=== PATIENT | male | born 1960 | race Caucasian/White ===

== ENCOUNTER 2016-10-06 03:26 | Emergency (ER) | payer OTHER ==
[~2016-10-06] VITALS: Ht 185.4 cm; Wt 96.4 kg
[~2016-10-06 03:26] MED LIST changes: -SULF1TAB35 PO; -oxyCODONE/APAP 5/325MG (PERCOCET 5) TABLET PO STA
[2016-10-06] MEDS ORDERED: TETANUS,DIPTH,PERTUSS P/F (BOOSTRIX) 0.5 ML VIAL IM ONE (03:45)
[2016-10-06 03:59] LABS: MEAN PLATELET VOLUME 8.9 FL (7.4-10.4); RED BLOOD COUNT 5.08 10^6/uL (4.35-5.85); RED CELL DISTRIBUTION WIDTH 13.9 % (10.0-14.5); WHITE BLOOD COUNT 4.6 10^3/uL (4.3-11.0)
[2016-10-06 04:23] LABS: ALANINE AMINOTRANSFERASE 41 U/L (0-55); ANION GAP 13 MMOL/L (5-14); ASPARTATE AMINO TRANSFERASE 27 U/L (5-34); BILIRUBIN,DIRECT 0.1 MG/DL (0.0-0.3); BILIRUBIN,INDIRECT 0.3 MG/DL; BILIRUBIN,TOTAL 0.4 MG/DL (0.1-1.0); BLOOD UREA NITROGEN 21 MG/DL (7-18); BUN/CREATININE RATIO 24; CALCIUM 8.7 MG/DL (8.5-10.1); CARBON DIOXIDE 21 MMOL/L (21-32); CHLORIDE 107 MMOL/L (98-107); CREATININE SERUM 0.89 MG/DL (0.60-1.30); GFR ESTIMATED > 60; GLUCOSE 115 MG/DL (70-105); POTASSIUM 3.6 MMOL/L (3.6-5.0); SODIUM 141 MMOL/L (135-145); TOTAL PROTEIN 6.5 G/DL (6.4-8.2)
[2016-10-06 04:26] LABS: ALCOHOL < 10 MG/DL (<10)
[2016-10-06] MEDS ORDERED: LIDOCAINE 1% INJ 20 ML (XYLOCAINE) VIAL INJ ONE (04:30)
[2016-10-06] MEDS ORDERED: ceFAZolin 2 GM/50 ML NS 50 ML IV ONE (04:30)
[2016-10-06] MEDS ORDERED: IOHEXOL 350 MG/ML 100 ML (OMNIPAQUE 350) VIAL IV ONE (04:30)
[2016-10-06] MEDS ORDERED: NS 100 ML (IVPB) BAG IV ONE (04:30)
[2016-10-06] MEDS ORDERED: oxyCODONE/APAP 5/325MG (PERCOCET 5) TABLET PO ONE (05:30)
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
[2016-10-06 05:53] LABS: BILIRUBIN,URINE NEGATIVE (NEGATIVE); KETONES,URINE NEGATIVE (NEGATIVE); LEUKOCYTE ESTERASE ,URINE 1+ (NEGATIVE); NITRITE,URINE NEGATIVE (NEGATIVE); PH,URINE 6.5 (5-9); PROTEIN,URINE 1+ (NEGATIVE); UROBILINOGEN,URINE 1 MG/DL (NORMAL)
[2016-10-06 06:00] LABS: WBC,URINE RARE /HPF
[2016-10-06] MEDS ORDERED: fentaNYL INJECTION 100 MCG/2 ML AMP IVP ONE (06:00)
[2016-10-06 06:01] LABS: SQUAMOUS EPITHELIAL CELL,UR 0-2 /HPF
[2016-10-06 06:44] VITALS: BP 119/79
[2016-10-06] MEDS ORDERED: HYDR-3812 PO (06:46)
[2016-10-06] MEDS ORDERED: SULF1TAB35 PO (06:46)
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
--- NOTE | 2016-10-06 08:40 | Diagnostic Imaging Report ---
INDICATION: Pain. FINDINGS: There is a minimally displaced fracture through the base of the first metacarpal. There also appears to be partial dislocation of the interphalangeal joint of the left thumb. There are otherwise mild degenerative changes. There is no other fracture or dislocation. IMPRESSION: At least partial dislocation of the interphalangeal joint of the thumb. Mildly comminuted fracture involving the base of the first metacarpal Dictated by: Dictated on workstation # [id number]
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
--- NOTE | 2016-10-06 09:38 | Diagnostic Imaging Report ---
INDICATION: Post reduction imaging of the thumb status post dislocation. EXAMINATION: Left thumb dated 10/06/2016. COMPARISON: Same date earlier time. FINDINGS: Three views of the thumb demonstrate an overlying splint obscuring fine bony detail. The previously noted fracture at the base of the proximal first metacarpal is in better anatomic alignment although continued angulation is noted. The remaining osseous structures are unchanged from previous with deformity of the distal aspect of the proximal first phalanx. IMPRESSION: 1. Better alignment although some angulation at the first metacarpal fracture is still seen. Other changes unchanged from previous. Dictated by: Dictated on workstation # [id number]
== END 2016-10-06 06:56 | disposition home or self-care (01) ==
LOC: EDUNIT# 03:26 → ER 03:30
DX: S62.317A Displaced fracture of base of fifth metacarpal bone, left hand, initial encounter for closed fracture (principal); S61.012A Laceration without foreign body of left thumb without damage to nail, initial encounter; S66.922A Laceration of unspecified muscle, fascia and tendon at wrist and hand level, left hand, initial encounter; I25.10 Atherosclerotic heart disease of native coronary artery without angina pectoris; J44.9 Chronic obstructive pulmonary disease, unspecified; Z95.5 Presence of coronary angioplasty implant and graft; Z87.891 Personal history of nicotine dependence; V20.4XXA Motorcycle driver injured in collision with pedestrian or animal in traffic accident, initial encounter
CPT/HCPCS: 12002; 26725; 36415; 70450; 71260; 72125; 73130; 73140; 74177; 80048; 80076; 80320; 81000; 85027; 93041

== ENCOUNTER → 2016-10-06 | Emergency (ER) | payer OTHER ==
[~2016-10-06] VITALS: Ht 185.4 cm; Wt 90.7 kg
[~2016-10-06] MED LIST: ASP325T PO; ASPI-86 PO; ATOR40TA PO; ATOR80TA PO; CITA40TA19 PO; CLOP75TA PO; COZAAR PO; CYCL10TA9 PO; DCS100C PO; DOCU-143 PO; ESCI10TA48; GARL400T13 PO; GLUC-110 PO; HYDR-2858 PO; HYDR-2997 PO; HYDR-3812 PO; HYDR-700 PO; IMDUR; ISOS30TA3 PO; LISI-556 PO; LOPRESSOR; METH-313 PO; METO-333 PO; NAPR-243 PO; NITR0.4T12 SL; OMEP20CA6 PO; OMG1KC PO; PNT40TEC PO; RNT150T PO; SIMV80TA3 PO; SIMVASTATIN; SULF1TAB35 PO; ZEGRID; ZOCOR; oxyCODONE/APAP 5/325MG (PERCOCET 5) TABLET PO STA
--- NOTE | 2016-10-06 14:33 | ED Upper Extremity ---
General Chief Complaint: Upper Extremity Stated Complaint: FALL/WANTS PREVIOUS INJ RECHECKED History of Present Illness Time seen by provider: 13:55 Initial Comments evaluation for left upper extremity injury. he was discharged from the emergency room at 0730 after reduction at the left fifth metacarpal fracture and left thumb fracture. he has a thumb spica splint on the left hand, made from [employer]. He has not filled his prescriptions that were given earlier today. While at home , he tripped over his dog, he does not report that he landed on the left upper extremity but he is concerned that the splint could have moved. also feels as though the left thumb is different than when he left. Pain/Injury Location: left arm, left thumb, left 5th finger Method of Injury: fell Allergies and Home Medications Allergies Coded Allergies: erythromycin base (Unverified Allergy, Intermediate, HIVES, 03/19/16) codeine (Unverified Adverse Reaction, Mild, NAUSEA, IRRITABILITY, 03/19/16 ) Home Medications Hydrocodone/Acetaminophen 1 Each Tablet, 1-2 EACH PO Q6H PRN for PAIN, #40 Prescribed by: REBEKAH HUIZAR on 10/06/16 0646 Sulfamethoxazole/Trimethoprim 1 Each Tablet, 1 EACH PO BID, #20 Prescribed by: REBEKAH HUIZAR on 10/06/16 0646 Constitutional: no symptoms reported, see HPI EENTM: no symptoms reported, see HPI Respiratory: no symptoms reported, see HPI Cardiovascular: no symptoms reported, see HPI Gastrointestinal: no symptoms reported, see HPI Genitourinary: no symptoms reported, see HPI Musculoskeletal: see HPI, joint pain (left thumb) Skin: no symptoms reported, see HPI Psychiatric/Neurological: No Symptoms Reported, See HPI All Other Systems Reviewed Negative Unless Noted: Yes Past Nzrmafk-Uayuaz-Xidsdu Hx Patient Social History Alcohol Use: Denies Use Recreational Drug Use: No Type Used: Cigarettes Former Smoker/When Quit: Apr 29, 2009 Recent Foreign Travel: No Contact w/Someone Who Travel: No Recent Hopitalizations: No Immunizations Up To Date Tetanus Booster (TDap): Less than 5yrs PED Vaccines UTD: No Date of Pneumonia Vaccine: Jul 28, 2012 Seasonal Allergies Seasonal Allergies: Yes Surgeries HX Surgeries: Yes Surgeries: Coronary Stent, Nose Respiratory Hx Respiratory Disorders: Yes Respiratory Disorders: COPD, Emphysema Cardiovascular Hx Cardiac Disorders: Yes Cardiac Disorders: Coronary Artery Disease, Heart Attack, High Cholesterol, Peripheral Vascular Neurological Hx Neurological Disorders: No Reproductive System Hx Reproductive Disorders: No Genitourinary Hx Genitourinary Disorders: No Gastrointestinal Hx Gastrointestinal Disorders: No Musculoskeletal Hx Musculoskeletal Disorders: Yes Musculoskeletal Disorders: Arthritis, Fractures Endocrine Hx Endocrine Disorders: No HEENT HX ENT Disorders: No Cancer Hx Cancer: No Psychosocial Hx Psychiatric Problems: Yes Behavioral Health Disorders: Depression Integumentary HX Skin/Integumentary Disorder: Yes Skin/Integumentary Disorders: Psoriasis Blood Transfusions Hx Blood Disorders: No Adverse Reaction to a Blood Tr: No Reviewed Nursing Assessment Reviewed/Agree w Nursing PMH: Yes Family Medical History Significant Family History: Heart Disease Family Medial History: Colon cancer 19 MOTHER FH: lung cancer 19 FATHER Thyroid disease 19 MOTHER Physical Exam Vital Signs Vital Sign - Last 12Hours 10/06/16 13:45 Temp 98.2 Pulse 77 Resp 18 B/P (MAP) 187/86 Pulse Ox 98 O2 Delivery Room Air Capillary Refill : General Appearance: WD/WN, no apparent distress Cardiovascular: normal peripheral pulses, regular rate, rhythm Respiratory: chest non-tender, lungs clear Hand: Left ([employer] thumb spica splint applied to left upper extremity. The thumb is immobilized. The splint is properly intact. He has full range of motion to the fourth through fifth digits of the left hand. Sensation is intact to the distal tip of the left thumb. Cap Refill less than 2 seconds to left thumb) Neurologic/Psychiatric: no motor/sensory deficits, alert, normal mood/affect, oriented x 3 Skin: normal color, warm/dry Laceration Repair : Suture Size: 4-0 Progress/Results/Core Measures Results/Orders My Orders Orders - MATT DC Oxycodone/Apap 5/325mg Tablet (Percocet (10/06/16 14:00) Hand, Left, 3 Views (10/06/16 14:03) Vital Signs/I&O Vital Sign - Last 12Hours 10/06/16 10/06/16 13:45 14:45 Temp 98.2 Pulse 77 82 Resp 18 18 B/P (MAP) 187/86 Pulse Ox 98 98 O2 Delivery Room Air Diagnostic Imaging Diagonstic Imaging: Xray Plain Films/CT/US/NM/MRI: hand Comments NAME: WING BRONSON JR MED REC#: [id number] PT STATUS: REG ER : 1960 PHYSICIAN: MATT DC ADMIT DATE: 10/06/16/ER Signed Date of Exam: 10/06/16 HAND, LEFT, 3 VIEWS INDICATION: Fracture. 3 views were obtained FINDINGS: The fracture involving the proximal first metacarpal is in near-anatomic alignment. Bones are partially encased within cast material. No other fracture or dislocation. IMPRESSION: Closed reduction and casting of the mildly comminuted fracture involving the base of the first metacarpal. Dictated by: Dictated on workstation # [id number] Dict: 10/06/16 1423 Trans: 10/06/16 1632 Interpreted by: BRIAN HOPKINS Electronically signed by: BRIAN HOPKINS 10/06/16 1632 Reviewed: Reviewed by Me Departure Impression Impression: Primary Impression: Fall Qualified Codes: W19.XXXA - Unspecified fall, initial encounter Additional Impression: Fracture, metacarpal Qualified Codes: S62.245D - Nondisplaced fracture of shaft of first metacarpal bone, left hand, subsequent encounter for fracture with routine healing Disposition: 01 HOME, SELF-CARE Condition: Improved Departure-Patient Inst. Decision time for Depature: 14:15 Referrals: EMILI PABLO MD (PCP/Family) Primary Care Physician Patient Instructions: Preventing Falls Add. Discharge Instructions: Given prescription for pain medicine from earlier today filled. Follow all directions given from earlier today. Return to emergency department for new problems. All discharge instructions reviewed with patient and/or family. Voiced understanding. MATT DC Oct 06, 2016 14:33
[2016-10-06 14:45] VITALS: BP 137/97
== END | disposition home or self-care (01) ==
LOC: EDUNIT# 13:17 → ER 13:19
DX: S62.24 Fracture of shaft of first metacarpal bone (principal); I25.10 Atherosclerotic heart disease of native coronary artery without angina pectoris; J44.9 Chronic obstructive pulmonary disease, unspecified; Z95.5 Presence of coronary angioplasty implant and graft; F17.210 Nicotine dependence, cigarettes, uncomplicated; W01.0XXA Fall on same level from slipping, tripping and stumbling without subsequent striking against object, initial encounter
CPT/HCPCS: 73130; 99282

== ENCOUNTER 2017-10-16 02:39 | Emergency (ER) | payer BC ==
[~2017-10-16] VITALS: Ht 185.4 cm; Wt 90.9 kg
[~2017-10-16 02:39] MED LIST changes: +ACHD5005 PO; -HYDR-3812 PO; +SULF1TAB35 PO
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
[2017-10-16] MEDS ORDERED: RX-NAPROXEN (NAPROSYN) 250 MG TAB PPK#4 PO STA (03:16)
[2017-10-16] MEDS ORDERED: NAPR-915 PO (03:18)
--- NOTE | 2017-10-16 03:22 | ED Upper Extremity ---
General Chief Complaint: Upper Extremity Stated Complaint: RT HAND INJURY-LOG FELL ON HAND Nursing Triage Note: patient reports having a log fall on his R hand Nursing Sepsis Screen: No Definite Risk Source: patient History of Present Illness Date Seen by Provider: Oct 16, 2017 Time Seen by Provider: 02:54 Initial Comments PT ARRIVES VIA POV C/O RIGHT HAND PAIN STATES HE WAS CUTTING WOOD YESTERDAY AND THE END OF A LOG FELL AND HIT THE BACK OF HIS RIGHT HAND C/O PAIN, BRUISING AND SWELLING TO THE AREA NO OTHER INJURIES NO PARESTHESIAS OR MOTOR DEFICITS NO PRIOR INJURY TO THIS HAND HAS NOT TAKEN ANYTHING FOR PAIN PT IS RIGHT HANDED, 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 [employer] PCP: IN [place] Allergies and Home Medications Allergies Coded Allergies: erythromycin base (Unverified Allergy, Intermediate, HIVES, 03/19/16) codeine (Unverified Adverse Reaction, Mild, NAUSEA, IRRITABILITY, 03/19/16 ) Home Medications Hydrocodone Bit/Acetaminophen 1 Each Tablet, 1-2 EACH PO Q6H PRN for PAIN Prescribed by: REBEKAH HUIZAR on 10/06/16 0646 Naproxen 500 Mg Tablet, 500 MG PO BID Prescribed by: BRANDEN RAMÍREZ on 10/16/17 0318 Sulfamethoxazole/Trimethoprim 1 Each Tablet, 1 EACH PO BID Prescribed by: REBEKAH HUIZAR on 10/06/16 0646 Patient Home Medication List Home Medication List Reviewed: Yes Constitutional: no symptoms reported Musculoskeletal: see HPI Skin: see HPI Psychiatric/Neurological: No Symptoms Reported Past Arbhcpv-Jemeiz-Uifpey Hx Patient Social History Alcohol Use: Denies Use Recreational Drug Use: No Smoking Status: Former Smoker Type Used: Cigarettes Former Smoker, Quit: Apr 29, 2007 Recent Foreign Travel: No Contact w/Someone Who Travel: No Recent Infectious Disease Expo: No Recent Hopitalizations: No Physical Abuse: No Sexual Abuse: No Immunizations Up To Date Tetanus Booster (TDap): Less than 5yrs PED Vaccines UTD: No Date of Pneumonia Vaccine: Jul 28, 2012 Seasonal Allergies Seasonal Allergies: Yes Past Medical History Surgeries: Yes (nose re-construction) Coronary Stent, Nose Respiratory: Yes COPD, Emphysema Currently Using CPAP: No Currently Using BIPAP: No Cardiac: Yes Coronary Artery Disease, Heart Attack, High Cholesterol, Peripheral Vascular Neurological: No Reproductive Disorders: No Gastrointestinal: No Musculoskeletal: Yes Arthritis, Fractures Endocrine: No Cancer: No Psychosocial: Yes Depression Nursing Suicide Risk Score: 0 Integumentary: Yes Psoriasis Blood Disorders: No Adverse Reaction/Blood Tranf: No Family Medical History Colon cancer 19 MOTHER FH: lung cancer 19 FATHER Thyroid disease 19 MOTHER Heart Disease Physical Exam Vital Signs Vital Signs - First Documented 10/16/17 03:07 Temp 98.2 Pulse 67 Resp 18 B/P (MAP) 147/85 (105) Pulse Ox 95 Capillary Refill : Less Than 3 Seconds General Appearance: WD/WN, no apparent distress, other (DIRTY, MALODOROUS) Wrist: Yes normal inspection, Yes non-tender, Yes no evidence of injury, Yes normal ROM Hand: Right (DORSAL ASPECT OF RIGHT HAND--NEAR METACARPALS 1, 2, 3), bone tenderness, ecchymosis, soft tissue tenderness, swelling Neurologic/Tendon: normal sensation, normal motor functions, normal tendon functions Neurologic/Psychiatric: insecticide mixer II-XII nml as tested, no motor/sensory deficits, alert, normal mood/affect, oriented x 3 Skin: normal color, warm/dry, ecchymosis Procedures/Interventions Suture Size: 4-0 Splinting and Joint Reduction : Splints: Colles Wrist (ALUMINUM-FOAM) Splint Application: Short Arm Progress/Results/Core Measures Results/Orders My Orders Orders - BRANDEN RAMÍREZ DO Hand, Right, 3 Views (10/16/17 03:00) Cockup Splint (10/16/17 03:16) Rx-Naproxen (Rx-Naprosyn) (10/16/17 03:16) Vital Signs/I&O 10/16/17 10/16/17 03:07 03:25 Temp 98.2 98.2 Pulse 67 67 Resp 18 18 B/P (MAP) 147/85 (105) 147/85 (105) Pulse Ox 95 95 Blood Pressure Mean: 105 Diagnostic Imaging Comments XRAYS RIGHT HAND--NO ACUTE PROCESS, PENDING RADIOLOGIST REVIEW Departure Impression Primary Impression: Contusion of right hand Disposition: 01 HOME, SELF-CARE Condition: Stable Departure-Patient Inst. Referrals: NO,LOCAL PHYSICIAN (PCP/Family) Primary Care Physician Patient Instructions: Contusion (DC), SPLINT CARE Add. Discharge Instructions: WEAR SPLINT NEEDED FOR COMFORT ICE TO AREA AT 20 MINUTE INTERVALS ELEVATE HAND MUCH POSSIBLE FOLLOW UP WITH YOUR DR IN 1 WEEK IF NO BETTER All discharge instructions reviewed with patient and/or family. Voiced understanding. Scripts Naproxen (Naproxen) 500 Mg Tablet 500 MG PO BID, #20 TAB Prov: BRANDEN RAMÍREZ DO 10/16/17 BRANDEN RAMÍREZ DO Oct 16, 2017 03:22
[2017-10-16 03:25] VITALS: BP 147/85
--- NOTE | 2017-10-16 05:31 | Diagnostic Imaging Report ---
INDICATION: Pain and bruising status post injury COMPARISON: None. FINDINGS: 3 views of the right hand show no fractures, dislocations, or other acute bony abnormalities identified. Joint spaces are well maintained throughout. The soft tissues appear unremarkable. No radiopaque foreign bodies are identified. IMPRESSION: No acute fractures or dislocations of the right hand. Dictated by: Dictated on workstation # [id number]
== END 2017-10-16 03:27 | disposition home or self-care (01) ==
LOC: EDUNIT# 02:39 → ER 02:43
DX: S60.221A Contusion of right hand, initial encounter (principal); I25.10 Atherosclerotic heart disease of native coronary artery without angina pectoris; I25.2 Old myocardial infarction; E78.00 Pure hypercholesterolemia, unspecified; F32.9 Major depressive disorder, single episode, unspecified; J43.9 Emphysema, unspecified; Z95.5 Presence of coronary angioplasty implant and graft; Z88.1 Allergy status to other antibiotic agents; Z87.81 Personal history of (healed) traumatic fracture; Z88.5 Allergy status to narcotic agent; Z87.2 Personal history of diseases of the skin and subcutaneous tissue; Z87.891 Personal history of nicotine dependence; W20.8XXA Other cause of strike by thrown, projected or falling object, initial encounter
CPT/HCPCS: 73130

== ENCOUNTER → 2018-07-08 | Outpatient (CLI) | payer BC ==
[~2018-07-08] MED LIST changes: +NAPR-915 PO
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
== END ==
LOC: RAD 14:49
DX: M25.532 Pain in left wrist (principal)
CPT/HCPCS: 73110

== ENCOUNTER 2018-12-30 21:58 | Observation (INO) | payer BC ==
[~2018-12-30] VITALS: Ht 182.9 cm; Wt 83.1 kg
[2018-12-30] MEDS ORDERED: ASPIRIN 81 MG CHEW (CHILDREN'S ASA) PO ONE (22:15)
[2018-12-30 22:22] LABS: BASOPHILS % (AUTO) 1 % (0-10); EOSINOPHILS # (AUTO) 0.4 10^3/uL (0.0-0.3); EOSINOPHILS % (AUTO) 8 % (0-10); HEMATOCRIT 43 % (40-54); HEMOGLOBIN 14.6 G/DL (13.3-17.7); LYMPHOCYTES # (AUTO) 1.4 X 10^3 (1.0-4.0); LYMPHOCYTES % (AUTO) 31 % (12-44); MEAN CORPUSCULAR HEMOGLOBIN 29 PG (25-34); MEAN CORPUSCULAR HGB CONC 34 G/DL (32-36); MEAN CORPUSCULAR VOLUME 83 FL (80-99); MEAN PLATELET VOLUME 9.1 FL (7.4-10.4); MONOCYTES # (AUTO) 0.4 X 10^3 (0.0-1.0); MONOCYTES % (AUTO) 8 % (0-12); NEUTROPHILS # (AUTO) 2.3 X 10^3 (1.8-7.8); NEUTROPHILS % (AUTO) 52 % (42-75); PLATELET COUNT 206 10^3/uL (130-400); RED CELL DISTRIBUTION WIDTH 13.3 % (10.0-14.5); WHITE BLOOD COUNT 4.4 10^3/uL (4.3-11.0)
--- NOTE | 2018-12-30 22:23 | ED Chest Pain ---
General Chief Complaint: Chest Pain Stated Complaint: CHEST PAIN Nursing Triage Note: PT AMB TO RM 5 WITH COMPLAINT OF CP. STATES STARTED APPROX 20 MIN ESTABLISHMENT GUIDE. STATES TOOK TWO NITRO ESTABLISHMENT GUIDE. Nursing Sepsis Screen: No Definite Risk Source: patient, family (daughter) Exam Limitations: no limitations History of Present Illness Date Seen by Provider: Dec 30, 2018 Time Seen by Provider: 22:08 Initial Comments Patient presents to ER by private conveyance with his daughter and chief complaint that approximately for 30 minutes prior to arrival he began to experience some crushing broken glass chest pain in the center of his chest that does not radiate. It is similar to pain is felt before with his cardiac pain. 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 His primary care is up there as well. He has had occluded bilateral femorals that are grafted. He says the pain is worse with walking. He was just sitting talking to family at the time it started. He takes baby aspirin but no blood thinners. He is on simvastatin, mood medicines. He takes Imdur and has been taking his medications appropriately. He quit smoking 10 years ago and is not diabetic. He does have hypertension and hyperlipidemia. No history of CABG. On his way here he took 2 separate nit roglycerin with bring his pain down from a 6 to a 2 or 3. He is presently at 3 out of 10. Allergies and Home Medications Allergies Coded Allergies: erythromycin base (Unverified Allergy, Intermediate, HIVES, 03/19/16) codeine (Unverified Adverse Reaction, Mild, NAUSEA, IRRITABILITY, 03/19/16) Home Medications Hydrocodone Bit/Acetaminophen 1 Each Tablet, 1-2 EACH PO Q6H PRN for PAIN Prescribed by: REBEKAH HUIZAR on 10/06/1646 Naproxen 500 Mg Tablet, 500 MG PO BID Prescribed by: BRANDEN RAMÍREZ on 10/16/17 0318 Sulfamethoxazole/Trimethoprim 1 Each Tablet, 1 EACH PO BID Prescribed by: REBEKAH HUIZAR on 10/06/16645 Patient Home Medication List Home Medication List Reviewed: Yes Review of Systems Review of Systems Constitutional: No chills, No diaphoresis EENTM: No Blurred Vision, No Double Vision Respiratory: Denies Cough, Denies Shortness of Air Cardiovascular: See HPI, Chest Pain; Denies Edema, Denies Irregular Heart Rate, Denies Lightheadedness, Denies Palpitations, Denies Syncope Gastrointestinal: Denies Abdominal Pain, Denies Constipated, Denies Diarrhea, Denies Nausea Genitourinary: Denies Burning, Denies Discharge Musculoskeletal: No back pain, No joint pain Past Wcrdgif-Uhgqzu-Aoujly Hx Patient Social History Alcohol Use: Denies Use Recreational Drug Use: No Smoking Status: Former Smoker Type Used: Cigarettes Former Smoker, Quit: Apr 29, 2007 Recent Foreign Travel: No Contact w/Someone Who Travel: No Recent Infectious Disease Expo: No Recent Hopitalizations: No Physical Abuse: No Sexual Abuse: No Mistreated: No Fear: No Immunizations Up To Date Tetanus Booster (TDap): Less than 5yrs PED Vaccines UTD: No Date of Pneumonia Vaccine: Jul 28, 2012 Seasonal Allergies Seasonal Allergies: Yes Past Medical History Surgeries: Yes (nose re-construction) Coronary Stent, Nose Respiratory: Yes COPD, Emphysema Currently Using CPAP: No Currently Using BIPAP: No Cardiac: Yes Coronary Artery Disease, Heart Attack, High Cholesterol, Peripheral Vascular Neurological: No Reproductive Disorders: No Gastrointestinal: No Musculoskeletal: Yes Arthritis, Fractures Endocrine: No Cancer: No Psychosocial: Yes Depression Integumentary: Yes Psoriasis Blood Disorders: No Adverse Reaction/Blood Tranf: No Family Medical History Colon cancer 19 MOTHER FH: lung cancer 19 FATHER Thyroid disease 19 MOTHER Heart Disease Physical Exam Vital Signs Vital Signs - First Documented 12/30/18 21:58 Temp 97.8 Pulse 81 Resp 15 B/P (MAP) 142/92 (109) Pulse Ox 96 O2 Delivery Room Air Capillary Refill : Less Than 3 Seconds Height, Weight, BMI Height: 6'0" Weight: 185lbs. 8.0oz. 83.008263pi; 21.09 BMI Method:Stated General Appearance: No Apparent Distress, WD/WN HEENT: PERRL/EOMI, Pharynx Normal, Moist Mucous Membranes Respiratory: Chest Non Tender, Lungs Clear, Normal Breath Sounds, No Accessory Muscle Use, No Respiratory Distress Cardiovascular: Regular Rate, Rhythm, No Edema, No Murmur, Normal Peripheral Pulses Gastrointestinal: Normal Bowel Sounds, Non Tender, Soft Extremity: Normal Capillary Refill, Normal Inspection, No Pedal Edema Neurologic/Psychiatric: Alert, Oriented x3 Skin: Normal Color, Warm/Dry Procedures/Interventions Suture Size: 4-0 Progress/Results/Core Measures Results/Orders Lab Results Laboratory Tests Test 12/30/18 22:05 Range/Units White Blood Count 4.4 4.3-11.0 10^3/uL Red Blood Count 5.13 4.35-5.85 10^6/uL Hemoglobin 14.6 13.3-17.7 G/DL Hematocrit 43 40-54 % Mean Corpuscular Volume 83 80-99 FL Mean Corpuscular Hemoglobin 29 25-34 PG Mean Corpuscular Hemoglobin Concent 34 32-36 G/DL Red Cell Distribution Width 13.3 10.0-14.5 % Platelet Count 206 130-400 10^3/uL Mean Platelet Volume 9.1 7.4-10.4 FL Neutrophils (%) (Auto) 52 42-75 % Lymphocytes (%) (Auto) 31 12-44 % Monocytes (%) (Auto) 8 0-12 % Eosinophils (%) (Auto) 8 0-10 % Basophils (%) (Auto) 1 0-10 % Neutrophils # (Auto) 2.3 1.8-7.8 X 10^3 Lymphocytes # (Auto) 1.4 1.0-4.0 X 10^3 Monocytes # (Auto) 0.4 0.0-1.0 X 10^3 Eosinophils # (Auto) 0.4 H 0.0-0.3 10^3/uL Basophils # (Auto) 0.0 0.0-0.1 10^3/uL Prothrombin Time 12.9 12.2-14.7 SEC INR Comment 0.9 0.8-1.4 Activated Partial Thromboplast Time 26 24-35 SEC Sodium Level 140 135-145 MMOL/L Potassium Level 3.6 3.6-5.0 MMOL/L Chloride Level 105 98-107 MMOL/L Carbon Dioxide Level 25 21-32 MMOL/L Anion Gap 10 5-14 MMOL/L Blood Urea Nitrogen 13 7-18 MG/DL Creatinine 1.11 0.60-1.30 MG/DL Estimat Glomerular Filtration Rate > 60 BUN/Creatinine Ratio 12 Glucose Level 130 H 70-105 MG/DL Calcium Level 8.9 8.5-10.1 MG/DL Corrected Calcium 8.7 8.5-10.1 MG/DL Magnesium Level 2.1 1.6-2.4 MG/DL Total Bilirubin 0.4 0.1-1.0 MG/DL Aspartate Amino Transf (AST/SGOT) 20 5-34 U/L Alanine Aminotransferase (ALT/SGPT) 19 0-55 U/L Alkaline Phosphatase 81 40-136 U/L Myoglobin 30.3 10.0-92.0 NG/ML Troponin I < 0.028 <0.028 NG/ML B-Type Natriuretic Peptide < 10.0 <100.0 PG/ML Total Protein 6.7 6.4-8.2 GM/DL Albumin 4.2 3.2-4.5 GM/DL Lipase 42 8-78 U/L My Orders Orders - DEANDRE HOUSE Continuous Ekg Monitoring (12/30/18 22:04) Ekg Tracing (12/30/18 22:04) Chest 1 View, Ap/Pa Only (12/30/18 22:13) Cbc With Automated Diff (12/30/18 22:15) Magnesium (12/30/18 22:15) Cardiac Profile 1 (12/30/18 22:15) Comprehensive Metabolic Panel (12/30/18 22:15) Myoglobin Serum (12/30/18 22:15) Protime With Inr (12/30/18 22:15) Partial Thromboplastin Time (12/30/18 22:15) O2 (12/30/18 22:15) Monitor-Rhythm Ecg Trace Only (12/30/18 22:15) Lipid Panel (12/31/18 06:00) Ed Iv/Invasive Line Start (12/30/18 22:15) Lipase (12/30/18 22:15) BNP (12/30/18 22:15) Aspirin Chewable Tablet (Baby Aspirin Ch (12/30/18 22:15) Medications Given in ED Current Medications Medications Dose Ordered Sig/Deb Route Start Time Stop Time Status Last Admin Dose Admin Aspirin 324 mg ONCE ONCE PO 12/30/18 22:15 12/30/18 22:16 DC 12/30/18 22:19 324 MG Vital Signs/I&O 12/30/18 12/30/18 21:58 21:58 Temp 97.8 Pulse 81 Resp 15 B/P (MAP) 142/92 (109) Pulse Ox 96 O2 Delivery Room Air Room Air Blood Pressure Mean: 109 Progress Progress Note : Time: 22:21 Progress Note Chest pain workup. He does not want anything for the pain right now. Unstable angina versus other? His EKG is normal. If he has a normal troponin he still has a heart score 5 points. [address] Falcon: Patent stents in the right coronary artery. Unchanged coronary artery appearance. Mild left ventricular systolic function. Left ventricular ejection fraction is 25%. Normal cardiac hemodynamics. Echocardiogram [address] Falcon: Normal chamber dimensions and EF of 60%. Mild concentric left ventricular hypertrophy and mild diastolic dysfunction. Initial ECG Impression Date: Dec 30, 2018 Initial ECG Impression Time: 22:05 Initial ECG Rate: 64 Initial ECG Rhythm: Normal Sinus Initial ECG Intervals: Normal Initial ECG Impression: Normal Initial ECG Comparisson: Changed Comment Normal sinus rhythm without clinically significant ST elevation or depression. Diagnostic Imaging Diagonstic Imaging: Xray Plain Films/CT/US/NM/MRI: chest (1v) Reviewed: Reviewed by Me Departure Communication (Admissions) Time/Spoke to Admitting Phy: 23:16 Discussed case lab imaging findings with Dr. Rm and he agrees to observe the patient. Time/Spoke to Consulting Phy: 23:15 Discussed the case with Dr. Galeano; aspirin, Lovenox and nothing by mouth. Impression Primary Impression: Chest pain Qualified Codes: R07.9 - Chest pain, unspecified Additional Impression: ACS (acute coronary syndrome) Disposition: ADMITTED INPATIENT Condition: Stable Admissions Decision to Admit Reason: Admit from ER (General) Decision to Admit/Date: Dec 30, 2018 Time/Decision to Admit Time: 23:15 Departure-Patient Inst. Referrals: NO,LOCAL PHYSICIAN (PCP/Family) Primary Care Physician DEANDRE HOUSE Dec 30, 2018 22:23
[2018-12-30 22:28] LABS: INR 0.9 (0.8-1.4); PROTHROMBIN TIME PATIENT 12.9 SEC (12.2-14.7)
[2018-12-30 22:37] LABS: ALANINE AMINOTRANSFERASE 19 U/L (0-55); ALBUMIN 4.2 GM/DL (3.2-4.5); ALKALINE PHOSPHATASE 81 U/L (40-136); BUN/CREATININE RATIO 12; CALCIUM 8.9 MG/DL (8.5-10.1); CARBON DIOXIDE 25 MMOL/L (21-32); CHLORIDE 105 MMOL/L (98-107); CREATININE SERUM 1.11 MG/DL (0.60-1.30); GFR ESTIMATED > 60; GLUCOSE 130 MG/DL (70-105); LIPASE 42 U/L (8-78); MAGNESIUM 2.1 MG/DL (1.6-2.4); POTASSIUM 3.6 MMOL/L (3.6-5.0); SODIUM 140 MMOL/L (135-145); TOTAL PROTEIN 6.7 GM/DL (6.4-8.2)
[2018-12-30 22:52] LABS: BILIRUBIN,TOTAL 0.4 MG/DL (0.1-1.0)
[2018-12-31] VITALS (11 sets, daily range): BP systolic 103–139; BP diastolic 62–103
[2018-12-31] MEDS ORDERED: ONDANSETRON 4 MG/2 ML (SDV) Z0FRAN IV PRN (01:00)
[2018-12-31] MEDS ORDERED: morphine INJ 4 MG/ML 1 ML (VIAL/SYRINGE) IV PRN (01:15)
[2018-12-31] MEDS ORDERED: CATHETER FLUSH 10 ML SYR IV PRN (01:15)
[2018-12-31] MEDS ORDERED: NITROGLYCERIN 0.4 MG SL TABS BTL 25'S SL PRN (01:15)
[2018-12-31] MEDS ORDERED: NS IV 1000 ML 1,000 ML ONE (01:26)
[2018-12-31] MEDS: NS W/KCL 20 MEQ/L 1,000 ML IV SCH ×2 (02:18→03:15)
[2018-12-31 03:29] LABS: BASOPHILS % (AUTO) 1 % (0-10); EOSINOPHILS # (AUTO) 0.4 10^3/uL (0.0-0.3); EOSINOPHILS % (AUTO) 10 % (0-10); HEMATOCRIT 40 % (40-54); HEMOGLOBIN 13.4 G/DL (13.3-17.7); LYMPHOCYTES # (AUTO) 1.6 X 10^3 (1.0-4.0); LYMPHOCYTES % (AUTO) 36 % (12-44); MEAN CORPUSCULAR HEMOGLOBIN 28 PG (25-34); MEAN CORPUSCULAR HGB CONC 33 G/DL (32-36); MEAN CORPUSCULAR VOLUME 85 FL (80-99); MONOCYTES # (AUTO) 0.4 X 10^3 (0.0-1.0); MONOCYTES % (AUTO) 9 % (0-12); NEUTROPHILS % (AUTO) 44 % (42-75); PLATELET COUNT 190 10^3/uL (130-400); RED CELL DISTRIBUTION WIDTH 13.1 % (10.0-14.5); WHITE BLOOD COUNT 4.4 10^3/uL (4.3-11.0)
[2018-12-31 03:56] LABS: ALANINE AMINOTRANSFERASE 18 U/L (0-55); ALBUMIN 3.8 GM/DL (3.2-4.5); ALKALINE PHOSPHATASE 71 U/L (40-136); BILIRUBIN,TOTAL 0.3 MG/DL (0.1-1.0); BUN/CREATININE RATIO 14; CALCIUM 8.4 MG/DL (8.5-10.1); CARBON DIOXIDE 26 MMOL/L (21-32); CHLORIDE 108 MMOL/L (98-107); CHOLESTEROL 198 MG/DL (< 200); CREATININE SERUM 1.04 MG/DL (0.60-1.30); GFR ESTIMATED > 60; GLUCOSE 87 MG/DL (70-105); HDL CHOLESTEROL 36 MG/DL (40-60); POTASSIUM 3.9 MMOL/L (3.6-5.0); SODIUM 143 MMOL/L (135-145); TOTAL PROTEIN 5.8 GM/DL (6.4-8.2); TRIGLYCERIDES 175 MG/DL (<150); VLDL CHOLESTEROL 35 MG/DL (5-40)
--- NOTE | 2018-12-31 05:50 | Diagnostic Imaging Report ---
EXAMINATION: Portable erect AP chest at 1024 PM INDICATION: Chest pain The heart size is within normal limits and stable when compared to 03/19/2016. The justin are prominent but no different than on the prior exam. There is no evidence for failure, pneumonia or for a pleural effusion. The mediastinum is not widened. The osseous structures are intact. IMPRESSION: There is no evidence for active disease. Dictated by: Dictated on workstation # [id number]
[2018-12-31] MEDS ORDERED: CATHETER FLUSH 10 ML SYR IV SCH (06:00)
[2018-12-31] MEDS ORDERED: REGADENOSON 0.4 MG/5 ML SYR (LEXISCAN) IV ONE ×2 (08:00→08:58)
--- NOTE | 2018-12-31 08:03 | Consultation-Cardiology ---
HPI-Cardiology Cardiology Consultation Date of Consultation 12/31/18 Date of Admission Time Seen by Provider: 08:00 Indication: Chest pain HPI 58 years old gentleman with history of coronary artery disease, hypertension hyperlipidemia, no recent cardiac workup, started to have chest pain in the afternoon today, described it as dull in nature in the retrosternal area persisted until arrival to the emergency room, continue to have waxing and waning pain this morning he is feeling better, had mild residual discomfort, no shortness of breath. No palpitation, no syncope or near syncopal episodes. Had hip pain, have difficulty walking on a treadmill. Home Medications & Allergies Allergies: Coded Allergies: erythromycin base (Unverified Allergy, Intermediate, HIVES, 03/19/16) codeine (Unverified Adverse Reaction, Mild, NAUSEA, IRRITABILITY, 03/19/16) Home Medication List Reviewed: Yes IFD-Rxmbir-Pfcdzj Hx Patient Social History Marital Status: Employed/Student: employed Alcohol Use: Denies Use Recreational Drug Use: No Smoking Status: Former Smoker Former smoker/When Quit: Apr 29, 2009 Type Used: Cigarettes Recent Foreign Travel: No Recent Infectious Disease Expo: No Recent Hopitalizations: No Physical Abuse Screen: No Sexual Abuse: No Immunizations Up To Date Tetanus Booster (TDap): Less than 5yrs Date of Pneumonia Vaccine: Jul 28, 2012 Past Medical History Discussed below Family Medical History Significant Family History: Heart Disease Family History: Colon cancer 19 MOTHER FH: lung cancer 19 FATHER Thyroid disease 19 MOTHER Review of Systems-General Review of Systems Constitutional: see HPI; No chills, No diaphoresis; weakness EENTM: see HPI, no symptoms reported Respiratory: see HPI; No cough, No dyspnea on exertion, No hemoptysis, No orthopnea, No phlegm, No short of breath, No stridor, No wheezing, No other Cardiovascular: see HPI, chest pain; No edema, No Hx of Intervention, No palpitations, No syncope, No vascular heart diseas, No other Gastrointestinal: see HPI Genitourinary: see HPI Musculoskeletal: back pain, joint pain (Hip pain) Skin: see HPI Psychiatric/Neurological: See HPI Reviewed Test Results Reviewed Test Results Lab Laboratory Tests Test 12/30/18 22:05 12/31/18 03:06 Range/Units White Blood Count 4.4 4.4 4.3-11.0 10^3/uL Red Blood Count 5.13 4.74 4.35-5.85 10^6/uL Hemoglobin 14.6 13.4 13.3-17.7 G/DL Hematocrit 43 40 40-54 % Mean Corpuscular Volume 83 85 80-99 FL Mean Corpuscular Hemoglobin 29 28 25-34 PG Mean Corpuscular Hemoglobin Concent 34 33 32-36 G/DL Red Cell Distribution Width 13.3 13.1 10.0-14.5 % Platelet Count 206 190 130-400 10^3/uL Mean Platelet Volume 9.1 9.0 7.4-10.4 FL Neutrophils (%) (Auto) 52 44 42-75 % Lymphocytes (%) (Auto) 31 36 12-44 % Monocytes (%) (Auto) 8 9 0-12 % Eosinophils (%) (Auto) 8 10 0-10 % Basophils (%) (Auto) 1 1 0-10 % Neutrophils # (Auto) 2.3 2.0 1.8-7.8 X 10^3 Lymphocytes # (Auto) 1.4 1.6 1.0-4.0 X 10^3 Monocytes # (Auto) 0.4 0.4 0.0-1.0 X 10^3 Eosinophils # (Auto) 0.4 H 0.4 H 0.0-0.3 10^3/uL Basophils # (Auto) 0.0 0.0 0.0-0.1 10^3/uL Prothrombin Time 12.9 12.2-14.7 SEC INR Comment 0.9 0.8-1.4 Activated Partial Thromboplast Time 26 24-35 SEC Sodium Level 140 143 135-145 MMOL/L Potassium Level 3.6 3.9 3.6-5.0 MMOL/L Chloride Level 105 108 H 98-107 MMOL/L Carbon Dioxide Level 25 26 21-32 MMOL/L Anion Gap 10 9 5-14 MMOL/L Blood Urea Nitrogen 13 15 7-18 MG/DL Creatinine 1.11 1.04 0.60-1.30 MG/DL Estimat Glomerular Filtration Rate > 60 > 60 BUN/Creatinine Ratio 12 14 Glucose Level 130 H 87 70-105 MG/DL Calcium Level 8.9 8.4 L 8.5-10.1 MG/DL Corrected Calcium 8.7 8.6 8.5-10.1 MG/DL Magnesium Level 2.1 1.6-2.4 MG/DL Total Bilirubin 0.4 0.3 0.1-1.0 MG/DL Aspartate Amino Transf (AST/SGOT) 20 18 5-34 U/L Alanine Aminotransferase (ALT/SGPT) 19 18 0-55 U/L Alkaline Phosphatase 81 71 40-136 U/L Myoglobin 30.3 10.0-92.0 NG/ML Troponin I < 0.028 < 0.028 <0.028 NG/ML B-Type Natriuretic Peptide < 10.0 <100.0 PG/ML Total Protein 6.7 5.8 L 6.4-8.2 GM/DL Albumin 4.2 3.8 3.2-4.5 GM/DL Lipase 42 8-78 U/L Triglycerides Level 175 H <150 MG/DL Cholesterol Level 198 < 200 MG/DL LDL Cholesterol Direct 133 H 1-129 MG/DL VLDL Cholesterol 35 5-40 MG/DL HDL Cholesterol 36 L 40-60 MG/DL Physical Exam Physical Exam Vital Signs Vital Signs - First Documented 12/30/18 21:58 Temp 97.8 Pulse 81 Resp 15 B/P (MAP) 142/92 (109) Pulse Ox 96 O2 Delivery Room Air Capillary Refill : Less Than 3 Seconds Height, Weight, BMI Height: 6'0.00" Weight: 183lbs. 2.0oz. 83.918510mv; 24.8 BMI Method:Stated General Appearance: No Apparent Distress, WD/WN Eyes: Bilateral Eye Normal Inspection, Bilateral Eye PERRL, Bilateral Eye EOMI HEENT: PERRL/EOMI, Pharynx Normal, Moist Mucous Membranes Neck: Full Range of Motion, Normal Inspection, Non Tender, Supple, Carotid Bruit Respiratory: Chest Non Tender, Lungs Clear, Normal Breath Sounds, No Accessory Muscle Use, No Respiratory Distress Cardiovascular: Regular Rate, Rhythm, No Edema, No Murmur, Normal Peripheral Pulses Gastrointestinal: Normal Bowel Sounds, Non Tender, Soft Back: Normal Inspection, No CVA Tenderness, No Vertebral Tenderness Extremity: Normal Capillary Refill, Normal Inspection, No Pedal Edema Neurologic/Psychiatric: Alert, Oriented x3 Skin: Normal Color, Warm/Dry Lymphatic: No Adenopathy A/P-Cardiology Admission Diagnosis Chest pain Coronary artery disease Hypertension Hyperlipidemia Assessment/Plan Chest pain resembling angina, currently feeling somewhat better. Cardiac enzymes and EKG did not show any acute abnormality. Patient is unable to walk on the treadmill due to hip and back pain. We will evaluate Lexiscan stress test Coronary artery disease history of stent to the right coronary artery using Promus 3.0 had balloon angioplasty for in-stent restenosis in 2010. No further workup was done. Hypertension, I will restart medication monitor blood pressure Hyperlipidemia, monitor lipids Clinical Quality Measures DVT/VTE Risk/Contraindication: Risk Factor Score Per Nursin RFS Level Per Nursing on Admit: 4+=Very High MASON SHAH MD Dec 31, 2018 08:03
[2018-12-31] MEDS ORDERED: ASPIRIN E.C. 81 MG (ECOTRIN) TAB PO SCH (09:00)
--- NOTE | 2018-12-31 10:43 | History & Physical-Hospitalist ---
History of Present Illness HPI/Chief Complaint Liborio Sheppard Jr is a 58-year-old male with past medical history of hypertension, hyperlipidemia, coronary artery disease, who presented with chest pain. He reports that he was feeling well until yesterday evening. He was having an argument with his son-in-law and developed "crushing" substernal chest pain. She reports that there was radiation of the pain into his neck. He denies any nausea, vomiting, dyspnea, or diaphoresis. He denies any recent illness. He denies any fevers or chills. He denies any abdominal pain. Source: patient Exam Limitations: no limitations Date Seen 12/31/18 Time Seen by a Provider: 08:00 Attending Physician Juan Rm MD PCP No,Local Physician Referring Physician Date of Admission Dec 30, 2018 at 23:20 Home Medications & Allergies Home Medications Reviewed patient Home Medication Reconciliation performed by pharmacy medication reconciliations electroencephalograph technician and/or nursing. Patients Allergies have been reviewed. Allergies Allergies Coded Allergies erythromycin base (Unverified Allergy, Intermediate, HIVES, 03/19/16) codeine (Unverified Adverse Reaction, Mild, NAUSEA, IRRITABILITY, 03/19/16) Past Xodfrli-Fvzdgw-Juuqyb Hx Past Med/Social Hx: Reviewed Nursing Past Med/Soc Hx Patient Social History Marrital Status: Employed/Student: employed Alcohol Use: Denies Use Number of Drinks Today: 0 Recreational Drug Use: No Smoking Status: Former Smoker Former Smoker, Quit: Apr 29, 2007 Type Used: Cigarettes Physical Abuse Screen: No Sexual Abuse: No Recent Foreign Travel: No Contact w/other who traveled: No Recent Hopitalizations: No Recent Infectious Disease Expo: No Immunizations Up To Date Tetanus Booster (TDap): Less than 5yrs Pediatric: No Date of Pneumonia Vaccine: Jul 28, 2012 Seasonal Allergies Seasonal Allergies: No Past Medical History Surgeries: Coronary Stent, Nose Currently Using CPAP: No Currently Using BIPAP: No Cardiac: Coronary Artery Disease, Heart Attack, High Cholesterol, Peripheral Vascular Reproductive: No Musculoskeletal: Arthritis, Fractures Psychosocial: Depression Skin/Integumentary: Psoriasis History of Blood Disorders: No Adverse Reaction to Blood Lopez: No Family History Colon cancer 19 MOTHER FH: lung cancer 19 FATHER Thyroid disease 19 MOTHER Heart Disease Review of Systems Constitutional: no symptoms reported EENTM: no symptoms reported Respiratory: no symptoms reported Cardiovascular: chest pain Gastrointestinal: no symptoms reported Genitourinary: no symptoms reported Musculoskeletal: no symptoms reported Skin: no symptoms reported Psychiatric/Neurological: No Symptoms Reported Physical Exam Physical Exam Vital Signs Vital Signs - First Documented 12/30/18 21:58 Temp 97.8 Pulse 81 Resp 15 B/P (MAP) 142/92 (109) Pulse Ox 96 O2 Delivery Room Air Capillary Refill : Less Than 3 Seconds Height, Weight, BMI Height: 6'0.00" Weight: 183lbs. 2.0oz. 83.916120yr; 24.8 BMI Method:Stated General Appearance: No Apparent Distress, WD/WN HEENT: PERRL/EOMI Neck: Normal Inspection, Non Tender, Supple Respiratory: Chest Non Tender, Lungs Clear, Normal Breath Sounds, No Respiratory Distress Cardiovascular: Regular Rate, Rhythm, No Edema, No Murmur Gastrointestinal: Normal Bowel Sounds, Non Tender, Soft Extremity: Normal Inspection, Non Tender, No Pedal Edema Neurologic/Psychiatric: Alert, Oriented x3, No Motor/Sensory Deficits Skin: Normal Color, Warm/Dry Lymphatic: No Adenopathy Results Results/Procedures Labs Laboratory Tests 12/30/18 22:05 12/31/18 03:06 Patient resulted labs reviewed. Imaging: Reviewed Imaging Report Assessment/Plan Admission Diagnosis Chest pain Admission Status: Inpatient Order (span 2 midnights) Reason for Inpatient Admission: Coronary artery disease Hypertension Hyperlipidemia Assessment and Plan Chest pain Coronary artery disease Hypertension Hyperlipidemia Chest pain concerning for angina Troponins remain negative EKG normal sinus rhythm, no concerning ST or T-wave changes Lipid panel with low HDL, high LDL and triglycerides Given aspirin 324 mg in the ER, continue baby aspirin daily Transition to high intensity statin, Lipitor 80 mg daily Cardiology consulted, planning for stress test today Will plan to restart antihypertensives prior to discharge Clinical Quality Measures DVT/VTE Risk/Contraindication: Risk Factor Score Per Nursin RFS Level Per Nursing on Admit: 4+=Very High NATALIE CAREY MD Dec 31, 2018 10:43
[2018-12-31] MEDS ORDERED: TIOT18CA2 IH (11:38)
[2018-12-31] MEDS ORDERED: ASPI-983 PO (11:38)
[2018-12-31] MEDS ORDERED: MELO15TA14 PO (11:38)
[2018-12-31] MEDS ORDERED: ASPI-789 PO (11:38)
[2018-12-31] MEDS ORDERED: RT-ALBUINH IH (11:38)
[2018-12-31] MEDS ORDERED: NITR0.4T39 SL (11:38)
[2018-12-31] MEDS ORDERED: PANT40TA2 PO (11:38)
[2018-12-31] MEDS ORDERED: TIZA4TAB4 PO (11:47)
[2018-12-31] MEDS ORDERED: ISOS30TA3 PO ×2 (11:47→12:32)
[2018-12-31] MEDS ORDERED: SIMV20TA3 PO (11:47)
[2018-12-31] MEDS ORDERED: ESCI20TA PO (11:47)
[2018-12-31] MEDS ORDERED: BUPR300T43 PO (11:47)
--- NOTE | 2018-12-31 11:47 | NUR ---
SPOKE WITH THE PATIENT ABOUT HIS MEDICATIONS. HE LISTED THE NAMES TO ME AND I CALLED THE OUTPATIENT PHARMACY AT [facility] FOR A LIST OF RECENTLY FILLED MEDICATIONS. HE IS PAST DUE FOR REFILL ON A FEW, HE STATES HE THINKS HE HAS THEM AT HOME BUT WITHOUT HIS BOTTLES HE CAN NOT BE SURE. HE IS GOING TO TAKE THE LIST WE PUT IN THE COMPUTER HOME AND GO THROUGH ALL HIS MED BOTTLES. I NOTED THE PAST DUE FILL DATE ON THE MED REC. [facility] FILLED: 11-25-18 MOBIC 15MG DAILY #11-24-18 LEXAPRO 20MG DAILY #11-24-18 SPIRIVA DAILY #11-24-18 PROTONIX 40MG DAILY #11-24-18 ALBUTEROL INHALER 2 PUFFS QID PRN #3 11-24-18 NITROSTAT 0.4MG PRN 07-22-18 WELLBUTRIN XL 300MG DAILY #07-22-18 ISOSORBIDE 30MG DAILY # SIMVASTATIN 20MG TIZANIDINE 4MG #30 (TAKES HS PRN) SYMBICORT 160-4.5 (STATES HE ONLY HAS SPIRIVA AND ONE PRN INHALER, DID NOT PUT THIS ON MED REC) HE TAKES ASPIRIN 81MG DAILY OTC AND EXCEDRIN NEEDED.
[2018-12-31] MEDS ORDERED: ATOR80TA76 PO (12:32)
--- NOTE | 2018-12-31 12:34 | Discharge Inst-Simple/Standard ---
Discharge Inst-Standard Discharge Medications New, Converted or Re-Newed RX: Transmitted to Pharmacy Patient Instructions/Follow Up Plan of Care/Instructions/FU: Take medications as prescribed. Follow up with Cardiology. Activity as Tolerated: Yes Discharge Diet: No Restrictions Return to The Hospital For: chest pain, shortness of breath, or if you feel like you are getting worse NATALIE CAREY MD Dec 31, 2018 12:34
--- NOTE | 2018-12-31 12:41 | Discharge Summary ---
Diagnosis/Chief Complaint Date of Admission Dec 30, 2018 at 23:20 Date of Discharge Discharge Date: Dec 31, 2018 Discharge Time: 12:37 Admission Diagnosis Chest pain Primary Care No,Local Physician Discharge Diagnosis Stable Angina Discharge Summary Discharge Physical Exam Allergies: Coded Allergies: erythromycin base (Unverified Allergy, Intermediate, HIVES, 03/19/16) codeine (Unverified Adverse Reaction, Mild, NAUSEA, IRRITABILITY, 03/19/16) Vitals & I&Os Vital Signs Date Time Temp Pulse Resp B/P (MAP) Pulse Ox O2 Delivery O2 Flow Rate FiO2 12/31/18 12:32 98.1 12/31/18 11:43 Room Air 12/31/18 08:00 56 10 117/80 (92) 98 General Appearance: No Apparent Distress Hospital Course Liborio Sheppard is a 58-year-old male with past medical history of hypertension, hyperlipidemia, coronary artery disease, who presented with chest pain. Ca rdiology was consulted and he underwent a Lexiscan which was normal. He also had a normal echocardiogram. His troponins remained normal and his initial EKG was also without abnormalities. He had not been taking any medications recently and was restarted on aspirin, statin, and Imdur. He will follow up with cardiology as an outpatient. Labs (last 24 hrs) Laboratory Tests 12/30/18 22:05: White Blood Count 4.4, Red Blood Count 5.13, Hemoglobin 14.6, Hematocrit 43, Mean Corpuscular Volume 83, Mean Corpuscular Hemoglobin 29, Mean Corpuscular Hemoglobin Concent 34, Red Cell Distribution Width 13.3, Platelet Count 206, Mean Platelet Volume 9.1, Neutrophils (%) (Auto) 52, Lymphocytes (%) (Auto) 31, Monocytes (%) (Auto) 8, Eosinophils (%) (Auto) 8, Basophils (%) (Auto) 1, Neutrophils # (Auto) 2.3, Lymphocytes # (Auto) 1.4, Monocytes # (Auto) 0.4, Eosinophils # (Auto) 0.4H, Basophils # (Auto) 0.0, Prothrombin Time 12.9, INR Comment 0.9, Activated Partial Thromboplast Time 26, Sodium Level 140, Potassium Level 3.6, Chloride Level 105, Carbon Dioxide Level 25, Anion Gap 10, Blood Urea Nitrogen 13, Creatinine 1.11, Estimat Glomerular Filtration Rate > 60, BUN/Creatinine Ratio 12, Glucose Level 130H, Calcium Level 8.9, Corrected Calcium 8.7, Magnesium Level 2.1, Total Bilirubin 0.4, Aspartate Amino Transf (AST/SGOT) 20, Alanine Aminotransferase (ALT/SGPT) 19, Alkaline Phosphatase 81, Myoglobin 30.3, Troponin I < 0.028, B-Type Natriuretic Peptide < 10.0, Total Protein 6.7, Albumin 4.2, Lipase 42 12/31/18 03:06: White Blood Count 4.4, Red Blood Count 4.74, Hemoglobin 13.4, Hematocrit 40, Mean Corpuscular Volume 85, Mean Corpuscular Hemoglobin 28, Mean Corpuscular Hemoglobin Concent 33, Red Cell Distribution Width 13.1, Platelet Count 190, Mean Platelet Volume 9.0, Neutrophils (%) (Auto) 44, Lymphocytes (%) (Auto) 36, Monocytes (%) (Auto) 9, Eosinophils (%) (Auto) 10, Basophils (%) (Auto) 1, Neutrophils # (Auto) 2.0, Lymphocytes # (Auto) 1.6, Monocytes # (Auto) 0.4, Eosinophils # (Auto) 0.4H, Basophils # (Auto) 0.0, Sodium Level 143, Potassium Level 3.9, Chloride Level 108H, Carbon Dioxide Level 26, Anion Gap 9, Blood Urea Nitrogen 15, Creatinine 1.04, Estimat Glomerular Filtration Rate > 60, BUN/Creatinine Ratio 14, Glucose Level 87, Calcium Level 8.4L, Corrected Calcium 8.6, Total Bilirubin 0.3, Aspartate Amino Transf (AST/SGOT) 18, Alanine Aminotransferase (ALT/SGPT) 18, Alkaline Phosphatase 71, Troponin I < 0.028, Total Protein 5.8L, Albumin 3.8, Triglycerides Level 175H, Cholesterol Level 198, LDL Cholesterol Direct 133H, VLDL Cholesterol 35, HDL Cholesterol 36L Patient resulted labs reviewed. Imaging: Reviewed Imaging Report Discussion & Recommendations Discharge Planning: <30 minutes discharge planning Discharge Home Medications: Active Scripts Active Atorvastatin Calcium 80 Mg Tablet 80 Mg PO HS 90 Days Isosorbide Mononitrate ER (Isosorbide Mononitrate) 30 Mg Tab.er.24h 30 Mg PO DAILY 90 Days LAST FILLED #90 07-22-18 Reported Tizanidine HCl 4 Mg Tablet 4 Mg PO HS PRN LAST FILLED SEPTEMBER 2017 #30 Simvastatin 20 Mg Tablet 20 Mg PO HS LAST FILLED OCTOBER 2017 Wellbutrin Xl (Bupropion HCl) 300 Mg Tab.er.24h 300 Mg PO DAILY LAST FILLED #90 07-22-18 Lexapro (Escitalopram Oxalate) 20 Mg Tablet 20 Mg PO DAILY Nitroglycerin 0.4 Mg Tab.subl 0.4 Mg SL UD PRN Proair Hfa (Albuterol Sulfate) 1 Puff Puff 2 Puff IH QID PRN Protonix (Pantoprazole Sodium) 40 Mg Tablet.dr 40 Mg PO DAILY Spiriva (Tiotropium [place]) 1 Inh Aerp 1 Cap IH DAILY Mobic (Meloxicam) 15 Mg Tablet 15 Mg PO DAILY Excedrin Migraine Caplet (Aspirin/Acetaminophen/Caffeine) 1 Each Tablet 2 Tab PO Q6-8HR PRN Aspirin EC (Aspirin) 81 Mg Tablet.dr 81 Mg PO DAILY Condition at discharge Stable Instructions to patient/family Please see electronic discharge instructions given to patient. Clinical Quality Measures DVT/VTE Risk/Contraindication: Risk Factor Score Per Nursin RFS Level Per Nursing on Admit: 4+=Very High NATALIE CAREY MD Dec 31, 2018 12:41
--- NOTE | 2018-12-31 13:08 | NUR ---
WING BRONSON JR demonstrates understanding of discharge instructions and accurately returns instructions upon questioning. Copy of Post-Discharge Instructions and Medication Discharge Instructions given to PT. WING BRONSON JR is able to manage continuing needs after discharge. Patients belongings returned to PT. Skin dry and intact; no breakdown noted. Patient discharged from [facility] on 12/31/18 at 1308. WING BRONSON JR left floor via AMBULATION, accompanied by STAFF/FAMILY.
--- NOTE | 2018-12-31 16:06 | STRESS TEST ---
DATE OF SERVICE: 12/31/2018 LEXISCAN MYOVIEW STRESS TEST REPORT REFERRING PHYSICIAN: No local physician. Baseline heart rate is 51. Baseline blood pressure 139/77. Baseline EKG is sinus rhythm with no ischemic changes. In summary, the patient was injected with 10.79 mCi of technetium-99 Myoview and the resting images were obtained. Then, the patient received 0.4 mg of Lexiscan followed by a 31.4 mCi of technetium-99 Myoview. Throughout the test, there were no EKG changes. The resting and stress images were reviewed and compared in the short axis, horizontal long axis, and vertical long axis views. Review of the images showed diaphragmatic attenuation affecting the quality of the images. There is mild decreased uptake at the inferoapical segment with subtle reversibility, no significant ischemia or infarction. SSS is 0. TID value 1.11. On the gated images, the left ventricle appeared to be normal size with mild hypokinesia of the inferior wall. Calculated ejection fraction 46%. IN CONCLUSION: 1. The patient tolerated Lexiscan well. 2. Diaphragmatic attenuation with mild decreased uptake at the inferoapical segment with subtle reversibility, no significant ischemia was noted. 3. Normal left ventricular size with mild hypokinesia at the inferior wall. Calculated ejection fraction 46%. Job ID: [id number] DocumentID: [id number] Dictated Date: 12/31/2018 15:57:17 [address] Recording Monitor Date: 12/31/2018 16:06:13 Dictated By: MASON SHAH MD
[2018-12-31] MEDS ORDERED: ATORVASTATIN 80 MG (LIPITOR) TABLET PO SCH (21:00)
== END 2018-12-31 13:08 | disposition home or self-care (01) ==
LOC: EDUNIT# 22:02 → ER 22:03 → ICU 23:20
PROVIDERS: ADMIT Internal Medicine; ATTEND Internal Medicine
DX: R07.9 Chest pain, unspecified (principal); E78.5 Hyperlipidemia, unspecified; J44.9 Chronic obstructive pulmonary disease, unspecified; I10 Essential (primary) hypertension; I25.10 Atherosclerotic heart disease of native coronary artery without angina pectoris; I73.9 Peripheral vascular disease, unspecified; I24.9 Acute ischemic heart disease, unspecified; F32.9 Major depressive disorder, single episode, unspecified; L40.9 Psoriasis, unspecified; M19.90 Unspecified osteoarthritis, unspecified site; Z87.891 Personal history of nicotine dependence; Z79.899 Other long term (current) drug therapy; Z88.1 Allergy status to other antibiotic agents; Z88.8 Allergy status to other drugs, medicaments and biological substances; Z79.891 Long term (current) use of opiate analgesic; Z79.82 Long term (current) use of aspirin; Z95.1 Presence of aortocoronary bypass graft; Z82.49 Family history of ischemic heart disease and other diseases of the circulatory system; Z80.0 Family history of malignant neoplasm of digestive organs; Z80.1 Family history of malignant neoplasm of trachea, bronchus and lung; Z83.49 Family history of other endocrine, nutritional and metabolic diseases
CPT/HCPCS: 36415; 71045; 78452; 80053; 80061; 83690; 83735; 83874; 83880; 84484; 85025; 85610; 85730; 93005; 93017; 93041; 93306

== ENCOUNTER 2019-05-21 12:47 | Observation (INO) | payer BC ==
[2019-05-21] VITALS (13 sets, daily range): BP systolic 114–139; BP diastolic 63–89
[~2019-05-21] VITALS: Ht 182.9 cm; Wt 97.7 kg
[~2019-05-21 12:47] MED LIST changes: +ASPI-789 PO; +ASPI-983 PO; +ATOR80TA76 PO; +BUPR300T43 PO; +ESCI20TA PO; +MELO15TA14 PO; +NITR0.4T39 SL; +PANT40TA2 PO; +RT-ALBUINH IH; +SIMV20TA26 PO; +TIOT18CA2 IH; +TIZA4TAB4 PO
[2019-05-21] MEDS ORDERED: ASPIRIN 81 MG CHEW (CHILDREN'S ASA) PO ONE (13:00)
--- NOTE | 2019-05-21 13:01 | ED Chest Pain ---
General Stated Complaint: CHEST PAIN Source: patient Exam Limitations: no limitations History of Present Illness Date Seen by Provider: May 21, 2019 Time Seen by Provider: 12:56 Initial Comments To ER with chest pain that awakened him from sleep at about 1150 this morning. History of coronary stents, his most recent cardiology catheterization was with Dr. Falcon here 2012. He took 2 nitroglycerin this morning (which are prescribed by his primary care provider in [place]). The 2 nitroglycerin completely resolved his pain and he is now pain-free. Chest pain was described as heaviness. Was admitted here in December for chest pain had stress test. Saw Dr. Galeano but has not followed up with him. 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 NTG SL FIELD MARKETING TEAM LEADER: Yes Allergies and Home Medications Allergies Coded Allergies: erythromycin base (Unverified Allergy, Intermediate, HIVES, 03/19/16) codeine (Unverified Adverse Reaction, Mild, NAUSEA, IRRITABILITY, 03/19/16) Home Medications Albuterol Sulfate 1 Puff Puff, 2 PUFF IH QID PRN for SHORTNESS OF BREATH, (Reported) Aspirin 81 Mg Tablet.dr, 81 MG PO DAILY, (Reported) Aspirin/Acetaminophen/Caffeine 1 Each Tablet, 2 TAB PO Q6-8HR PRN for Headache, (Reported) Atorvastatin Calcium 80 Mg Tablet, 80 MG PO HS Prescribed by: NATALIE CAREY on 12/31/18 1232 Escitalopram Oxalate 20 Mg Tablet, 20 MG PO DAILY, (Reported) Isosorbide Mononitrate 30 Mg Tab.er.24h, 30 MG PO DAILY LAST FILLED #90 07-22-18 Prescribed by: NATALIE CAREY on 12/31/18 1232 Nitroglycerin 0.4 Mg Tab.subl, 0.4 MG SL UD PRN for CHEST PAIN, (Reported) Pantoprazole Sodium 40 Mg Tablet.dr, 40 MG PO DAILY, (Reported) Tiotropium [place] 1 Inh Aerp, 1 CAP IH DAILY, (Reported) Patient Home Medication List Home Medication List Reviewed: Yes Review of Systems Review of Systems Constitutional: see HPI EENTM: No Symptoms Reported Respiratory: No Symptoms Reported Cardiovascular: See HPI, Chest Pain Gastrointestinal: No Symptoms Reported Genitourinary: No Symptoms Reported Musculoskeletal: no symptoms reported Skin: no symptoms reported Psychiatric/Neurological: No Symptoms Reported Endocrine: No Symptoms Reported Hematologic/Lymphatic: No Symptoms Reported Past [id number]-Usmhfq-Mpbfrl Hx Patient Social History Type Used: Cigarettes Former Smoker, Quit: Apr 29, 2007 Recent Foreign Travel: No Contact w/Someone Who Travel: No Recent Hopitalizations: No Immunizations Up To Date Tetanus Booster (TDap): Less than 5yrs PED Vaccines UTD: No Date of Pneumonia Vaccine: Jul 28, 2012 Seasonal Allergies Seasonal Allergies: No Past Medical History Surgeries: No Coronary Stent, Nose Respiratory: No COPD, Emphysema Currently Using CPAP: No Currently Using BIPAP: No Cardiac: Yes Coronary Artery Disease, Heart Attack, High Cholesterol, Peripheral Vascular Neurological: No Reproductive Disorders: No Genitourinary: No Gastrointestinal: No Musculoskeletal: No Arthritis, Fractures Endocrine: No HEENT: No Cancer: No Psychosocial: Yes Depression Integumentary: Yes (psoriasis) Psoriasis Blood Disorders: No Adverse Reaction/Blood Tranf: No Family Medical History Colon cancer 19 MOTHER FH: lung cancer 19 FATHER Thyroid disease 19 MOTHER Heart Disease Physical Exam Vital Signs Vital Signs - First Documented 05/21/19 12:50 Temp 36.6 Pulse 70 Resp 20 B/P (MAP) 138/95 (109) Pulse Ox 96 O2 Delivery Room Air Capillary Refill : Height, Weight, BMI Height: 6'0.00" Weight: 183lbs. 2.0oz. 83.948380ph; 24.8 BMI Method:Stated General Appearance: No Apparent Distress, WD/WN HEENT: PERRL/EOMI, TMs Normal Neck: Full Range of Motion, Normal Inspection Respiratory: No Accessory Muscle Use, No Respiratory Distress Cardiovascular: Regular Rate, Rhythm, Normal Peripheral Pulses Gastrointestinal: Normal Bowel Sounds, Non Tender, Soft Extremity: Normal Capillary Refill, Normal Inspection Neurologic/Psychiatric: Alert, Oriented x3 Skin: Normal Color, Warm/Dry Procedures/Interventions Suture Size: 4-0 Progress/Results/Core Measures Results/Orders Lab Results Laboratory Tests Test 05/21/19 12:55 Range/Units White Blood Count 6.9 4.3-11.0 10^3/uL Red Blood Count 5.29 4.35-5.85 10^6/uL Hemoglobin 14.8 13.3-17.7 G/DL Hematocrit 45 40-54 % Mean Corpuscular Volume 85 80-99 FL Mean Corpuscular Hemoglobin 28 25-34 PG Mean Corpuscular Hemoglobin Concent 33 32-36 G/DL Red Cell Distribution Width 13.9 10.0-14.5 % Platelet Count 225 130-400 10^3/uL Mean Platelet Volume 9.0 7.4-10.4 FL Neutrophils (%) (Auto) 68 42-75 % Lymphocytes (%) (Auto) 19 12-44 % Monocytes (%) (Auto) 8 0-12 % Eosinophils (%) (Auto) 5 0-10 % Basophils (%) (Auto) 0 0-10 % Neutrophils # (Auto) 4.7 1.8-7.8 X 10^3 Lymphocytes # (Auto) 1.3 1.0-4.0 X 10^3 Monocytes # (Auto) 0.6 0.0-1.0 X 10^3 Eosinophils # (Auto) 0.3 0.0-0.3 10^3/uL Basophils # (Auto) 0.0 0.0-0.1 10^3/uL Prothrombin Time 12.0 L 12.2-14.7 SEC INR Comment 0.9 0.8-1.4 Activated Partial Thromboplast Time 25 24-35 SEC Sodium Level 140 135-145 MMOL/L Potassium Level 4.2 3.6-5.0 MMOL/L Chloride Level 104 98-107 MMOL/L Carbon Dioxide Level 26 21-32 MMOL/L Anion Gap 10 5-14 MMOL/L Blood Urea Nitrogen 18 7-18 MG/DL Creatinine 0.94 0.60-1.30 MG/DL Estimat Glomerular Filtration Rate > 60 BUN/Creatinine Ratio 19 Glucose Level 105 70-105 MG/DL Calcium Level 9.0 8.5-10.1 MG/DL Corrected Calcium 8.8 8.5-10.1 MG/DL Magnesium Level 1.8 1.6-2.4 MG/DL Total Bilirubin 0.3 0.1-1.0 MG/DL Aspartate Amino Transf (AST/SGOT) 31 5-34 U/L Alanine Aminotransferase (ALT/SGPT) 62 H 0-55 U/L Alkaline Phosphatase 95 40-136 U/L Myoglobin 49.4 10.0-92.0 NG/ML Troponin I < 0.028 <0.028 NG/ML B-Type Natriuretic Peptide 30.7 <100.0 PG/ML Total Protein 6.8 6.4-8.2 GM/DL Albumin 4.2 3.2-4.5 GM/DL My Orders Orders - SELMA JOLLY APRN Cbc With Automated Diff (05/21/19 12:55) Magnesium (05/21/19 12:55) Chest 1 View, Ap/Pa Only (05/21/19 12:55) Ekg Tracing (05/21/19 12:55) Comprehensive Metabolic Panel (05/21/19 12:55) Myoglobin Serum (05/21/19 12:55) Protime With Inr (05/21/19 12:55) Partial Thromboplastin Time (05/21/19 12:55) O2 (05/21/19 12:55) Monitor-Rhythm Ecg Trace Only (05/21/19 12:55) Lipid Panel (05/22/19 06:00) Ed Iv/Invasive Line Start (05/21/19 12:55) BNP (05/21/19 12:55) Aspirin Chewable Tablet (Baby Aspirin Ch (05/21/19 13:00) Troponin I (05/21/19 12:55) Medications Given in ED Current Medications Medications Dose Ordered Sig/Deb Route Start Time Stop Time Status Last Admin Dose Admin Aspirin 324 mg ONCE ONCE PO 05/21/19 13:00 05/21/19 13:01 DC 05/21/19 13:10 324 MG Vital Signs/I&O 05/21/19 05/21/19 12:50 12:50 Temp 36.6 Pulse 70 Resp 20 B/P (MAP) 138/95 (109) Pulse Ox 96 O2 Delivery Room Air Diagnostic Imaging Diagonstic Imaging: Xray Plain Films/CT/US/NM/MRI: chest Comments NAME: [facility] REC#: [id number] PT STATUS: REG ER : 1960 PHYSICIAN: SELMA JOLLY APRN ADMIT DATE: 05/21/19/ER Draft Date of Exam:05/21/19 CHEST 1 VIEW, AP/PA ONLY INDICATION: Chest pain. TECHNIQUE: Single view chest 1:11 PM. CORRELATION STUDY: 12/30/2018 FINDINGS: The heart size, mediastinal configuration and pulmonary vascularity are within normal limits. The lungs are mildly hyperinflated but overall are clear with no consolidating infiltrate. There is no significant effusion or pneumothorax. IMPRESSION: 1. Negative for acute abnormality of the chest. Dictated on workstation # [id number] Dict: 05/21/19 1324 Trans: 05/21/19 1325 DO [id number] Interpreted by: LINK ACOSTA DO Electronically signed by: Departure Communication (Admissions) Time/Spoke to Admitting Phy: 14:[address] Mariee, would like to admit, tentative plan for cardiac cath later this evening or tomorrow. Repeat troponin. Time/Spoke to Consulting Phy: 14:[address] Carey, agrees to admit. 1402-initial troponin negative, remains symptom free with stable vital signs EKG unchanged from December admission. His HEART score is 3 which correlates with a risk of major adverse cardiac events at 0.9 and 1.7%. His family member at the bedside would like him to have a heart catheterization today. Impression Primary Impression: Chest pain Qualified Codes: R07.9 - Chest pain, unspecified Disposition: 09 ADMITTED INPATIENT Condition: Stable Admissions Decision to Admit Reason: Admit from ER (General) Decision to Admit/Date: May 21, 2019 Time/Decision to Admit Time: 14:04 Departure-Patient Inst. Referrals: NO,LOCAL PHYSICIAN (PCP/Family) Primary Care Physician SELMA JOLLY APRN May 21, 2019 13:01
[2019-05-21 13:02] LABS: BASOPHILS % (AUTO) 0 % (0-10); EOSINOPHILS # (AUTO) 0.3 10^3/uL (0.0-0.3); EOSINOPHILS % (AUTO) 5 % (0-10); HEMATOCRIT 45 % (40-54); HEMOGLOBIN 14.8 G/DL (13.3-17.7); LYMPHOCYTES # (AUTO) 1.3 X 10^3 (1.0-4.0); LYMPHOCYTES % (AUTO) 19 % (12-44); MEAN CORPUSCULAR HEMOGLOBIN 28 PG (25-34); MEAN CORPUSCULAR HGB CONC 33 G/DL (32-36); MEAN CORPUSCULAR VOLUME 85 FL (80-99); MONOCYTES # (AUTO) 0.6 X 10^3 (0.0-1.0); MONOCYTES % (AUTO) 8 % (0-12); NEUTROPHILS # (AUTO) 4.7 X 10^3 (1.8-7.8); NEUTROPHILS % (AUTO) 68 % (42-75); PLATELET COUNT 225 10^3/uL (130-400); RED CELL DISTRIBUTION WIDTH 13.9 % (10.0-14.5); WHITE BLOOD COUNT 6.9 10^3/uL (4.3-11.0)
[2019-05-21 13:18] LABS: INR 0.9 (0.8-1.4)
--- NOTE | 2019-05-21 13:25 | Diagnostic Imaging Report ---
INDICATION: Chest pain. TECHNIQUE: Single view chest 1:11 PM. CORRELATION STUDY: 12/30/2018 FINDINGS: The heart size, mediastinal configuration and pulmonary vascularity are within normal limits. The lungs are mildly hyperinflated but overall are clear with no consolidating infiltrate. There is no significant effusion or pneumothorax. IMPRESSION: 1. Negative for acute abnormality of the chest. Dictated by: Dictated on workstation # [id number]
[2019-05-21 13:35] LABS: ALANINE AMINOTRANSFERASE 62 U/L (0-55); ALBUMIN 4.2 GM/DL (3.2-4.5); ALKALINE PHOSPHATASE 95 U/L (40-136); BILIRUBIN,TOTAL 0.3 MG/DL (0.1-1.0); BUN/CREATININE RATIO 19; CARBON DIOXIDE 26 MMOL/L (21-32); CHLORIDE 104 MMOL/L (98-107); CREATININE SERUM 0.94 MG/DL (0.60-1.30); GFR ESTIMATED > 60; GLUCOSE 105 MG/DL (70-105); MAGNESIUM 1.8 MG/DL (1.6-2.4); POTASSIUM 4.2 MMOL/L (3.6-5.0); SODIUM 140 MMOL/L (135-145); TOTAL PROTEIN 6.8 GM/DL (6.4-8.2)
--- NOTE | 2019-05-21 15:00 | NUR ---
WING BRONSON JR admitted to room 416-1, with an admitting diagnosis of CHEST PAIN, on 05/21/19 from ED via WHEELCHAIR, accompanied by AND STAFF.WING BRONSON JR introduced to surroundings, call light, bed controls, phone, TV, temperature control, lights, meal times, smoking policy, visitor policy, side rail policy, bathrooms and showers. Patient Rights given to patient in the handbook. WING BRONSON JR verbalizes understanding that [facility] is not responsible for the loss or damage to any personal effects or valuables that are kept in the patients posession during their hospitalization. The following Patient Care Plans were discussed with the PT: Discharge Planning AND CHEST PAIN. WING BRONSON JR verbalizes understanding of Interdisciplinary Patient Education. RATED SUBSTERNAL CHEST PAIN A "2" PRESENTLY. ADMITS TO SOB WITH EXERTION. AT BEDSIDE.
[2019-05-21] MEDS ORDERED: NITROGLYCERIN 0.4 MG SL TABS BTL 25'S SL PRN (15:30)
[2019-05-21] MEDS ORDERED: morphine INJ 4 MG/ML 1 ML (VIAL/SYRINGE) IV PRN (15:30)
[2019-05-21] MEDS ORDERED: ONDANSETRON 4 MG/2 ML (SDV) Z0FRAN IV PRN (15:30)
[2019-05-21] MEDS ORDERED: BUDE10.2 INH (15:51)
--- NOTE | 2019-05-21 16:00 | NUR ---
DR. VALDOVINOS HERE TO SEE PATIENT. PLAN FOR HEART CATH THIS AFTERNOON.
[2019-05-21] MEDS ORDERED: NITR0.4T42 SL (16:06)
[2019-05-21] MEDS ORDERED: BUPR300T51 PO (16:06)
[2019-05-21] MEDS ORDERED: SIMV20TA26 PO (16:06)
[2019-05-21] MEDS ORDERED: MELO15TA39 PO (16:06)
[2019-05-21] MEDS ORDERED: ISOS30TA3 PO (16:06)
[2019-05-21] MEDS ORDERED: ESCI20TA45 PO (16:06)
[2019-05-21] MEDS ORDERED: PANT40TA3 PO (16:09)
--- NOTE | 2019-05-21 16:10 | NUR ---
THE PATIENT BROUGHT IN A LIST OF MEDICATIONS. FAMILY STATES THEY WROTE THAT LIST DOWN STRAIGHT FROM THE BOTTLES. THEY FILL HIS PRESCRIPTIONS AT THE [facility], THIS IS THE CHEAPEST OPTION AND SHE WORKS UP THERE SO IS NOT OUT OF THE WAY TO GET REFILLS. I EXPLAINED HE WAS STILL PAST DUE FOR HIS MEDS MOST OF THEM HAVE NOT BEEN FILLED RECENTLY. MOST OF THESE WERE ALSO PAST DUE AT HIS LAST ADMISSION IN AND THESE MEDS HAVE NOT BEEN FILLED SINCE THAT DISCHARGE. I CALLED [facility] TO VERIFY THE EXT MED HX IS SHOWING THE MOST ACCURATE FILL DATES. WHEN THE PATIENT WAS DISCHARGED IN FROM HERE A NEW SCRIPT FOR LIPITOR 80MG TO REPLACE SIMVASTATIN AND A RENEWAL FOR IMDUR WERE SENT TO [facility] VERIFIED NEITHER SCRIPT WAS PICKED UP BY THE PATIENT. SIMVASTATIN 20MG WAS FILLED 05-19-19 HOWEVER IT HAS NOT BEEN PICKED UP YET, I LEFT THIS ON THE MED REC. PRIOR TO THE FILL THAT IS READY NOW IT WAS LAST FILLED OCTOBER 2017. THE LIST THE PATIENT BROUGHT IN DOES NOT INCLUDE EXCEDRIN OR PROAIR PRN BUT HE STATES HE DOES USE THEM NEEDED. IT ALSO DOES NOT INCLUDE NITROGLYCERIN BUT HE DID RECENTLY FILL THIS AND DOES USE IT IF NEEDED. ALSO NOT ON THE LIST IS PROTONIX, WHEN I ASKED HIM ABOUT THIS HE STATES HE HAS BEEN OUT. FAMILY STATES IF THEY DO NOT SEE THE BOTTLE THEY DO NOT KNOW TO ASK FOR REFILLS, SHE IS GOING TO REQUEST A REFILL. I HAVE LEFT IT ON THE MED REC AT THIS TIME SHE IS GOING TO PURSUE GETTING IT FILLED. BUPROPION AND MELOXICAM ARE ON THE PATIENTS LIST. THESE WERE DISCONTINUED AT DISCHARGE IN . I HAVE LEFT THEM ON THE MED REC AND NOTED THE PAST DUE FILL DATES SINCE THE PATIENT IS STILL REPORTING HE TAKES THEM. FAMILY ALSO MENTIONS THEY RECEIVED A CALL FROM HIS THAT THEY WERE GOING TO START THE PATIENT ON CARDIZEM 120MG - THEY WERE JUST INFORMED OF THIS. WHEN I ASKED IF THEY WERE GOING TO CALL IN A SCRIPT SHE SAID NOT UNTIL THEY RECEIVED THE RESULTS FROM THE CATH. THERE IS NO SCRIPT ON FILE AT [facility], I DID NOT INCLUDE IT ON THE MED REC.
[2019-05-21] MEDS ORDERED: NS IV 1000 ML 1,000 ML IV SCH (16:15)
[2019-05-21] MEDS ORDERED: FLU QUADRIvalent (5+ YOA) 2019-2020 (AFLURIA) 0.5 ML IM ONE (16:15)
[2019-05-21] MEDS ORDERED: LIDOCAINE 1% INJ 20 ML 20 ML VIAL ONE (16:33)
[2019-05-21] MEDS ORDERED: HEParin (CATH LAB) 2,000 ML IV ONE (16:33)
--- NOTE | 2019-05-21 16:41 | Consultation-Cardiology ---
HPI-Cardiology Cardiology Consultation: Date of Consultation 05/21/19 Date of Admission Attending Physician Kimi Patel MD Admitting Physician No,Local Physician Consulting Physician Denis MARIEE MD HPI: Time Seen by a Provider: 16:39 Chief Complaint: Chest pain This is a 58-year-old gentleman with previous history of TN and multiple PCI. The last coronary angiography was done by Dr. Prado in 2012. He woke up with severe chest pain. He took a nitroglycerin which gave partial relief, however the pain came back. He took another nitroglycerin which resolved the pain. Total chest pain duration was over 30 minutes, closer to one hour. Substernal. Severe intensity. No radiation. No associated cardiac symptoms. The patient also has been having shortness of breath since the last few days. He also complained of claudication, left lower extremity is worse than the right. He does have resting discomfort in the left lower extremity. No history of smoki ng. Father had an TN. Review of Systems-Cardiology Review of Systems Constitutional: As described under HPI; No As described under HPI, No no symptoms reported, No chills, No fever, No lightheadedness Eyes: No As described under HPI, No no symptoms reported, No blindness, No blurred vision, No contact lenses, No drainage, No decreased acuity, No foreign body sensation, No pain, No vision change Ears/Nose/Throat: No As described under HPI, No no symptoms reported, No chronic hearing loss, No ear discharge, No ear pain, No nasal drainage, No ulc erations Respiratory: No no symptoms reported; As described under HPI; No As described under HPI, No cough, No orthopnea; shortness of breath; No SOB with excertion Cardiovascular: No no symptoms reported; As described under HPI; No As described under HPI; chest pain; No edema, No irregular heart rate, No lightheadedness, No palpitations; other (claudication L>R) Gastrointestinal: No no symptoms reported, No As described under HPI, No abdomen distended, No abdominal pain, No blood streaked bowels, No constipation, No diarrhea, No nausea, No vomiting, No stool coloration changes Genitourinary: No As described under HPI, No burning, No dysuria, No discharge, No frequency, No flank pain, No hematuria, No urgency Skin: No rash, No skin related problems, No ulcerations Psychiatric/Neurological: No anxiety, No depression, No seizure, No focal weakness, No syncope Hematologic: No bleeding abnormalities AHF-Hnwybq-Xznnwf Hx Patient Social History Alcohol Use: Denies Use Recreational Drug Use: No Smoking Status: Former Smoker Former smoker/When Quit: Apr 29, 2009 Type Used: Cigarettes Recent Foreign Travel: No Recent Infectious Disease Expo: No Immunizations Up To Date Tetanus Booster (TDap): Unknown Date of Pneumonia Vaccine: May 21, 2014 Past Medical History PMH As described under Assessment. Family Medical History Family History: Colon cancer 19 MOTHER FH: lung cancer 19 FATHER Thyroid disease 19 MOTHER Allergies and Home Medications Allergies Coded Allergies: erythromycin base (Unverified Allergy, Intermediate, HIVES, 03/19/16) codeine (Unverified Adverse Reaction, Mild, NAUSEA, IRRITABILITY, 03/19/16) Home Medications Albuterol Sulfate 1 Puff Puff, 2 PUFF IH QID PRN for SHORTNESS OF BREATH, (Reported) LAST FILLED 11-24-18 Aspirin/Acetaminophen/Caffeine 1 Each Tablet, 2 TAB PO Q6H PRN for Headache, (Reported) Budesonide/Formoterol Fumarate 10.2 Gm Hfa.aer.ad, 2 PUFF INH BID, (Reported) Bupropion HCl 300 Mg Tab.er.24h, 300 MG PO DAILY, (Reported) LAST FILLED #90 07-22-18 Escitalopram Oxalate 20 Mg Tablet, 20 MG PO DAILY, (Reported) LAST FILLED #90 11-24-18 Isosorbide Mononitrate 30 Mg Tab.er.24h, 30 MG PO DAILY, (Reported) LAST FILLED #90 07-22-18 Meloxicam 15 Mg Tablet, 15 MG PO DAILY, (Reported) LAST FILLED #90 11-25-18 Nitroglycerin 0.4 Mg Tab.subl, 0.4 MG SL UD PRN for CHEST PAIN (ANGINA), (Reported) Pantoprazole Sodium 40 Mg Tablet.dr, 40 MG PO DAILY, (Reported) LAST FILLED #90 11-24-18 Simvastatin 20 Mg Tablet, 20 MG PO HS, (Reported) FILLED #90 05-19-19 NOT PICKED UP YET - PRIOR TO THIS WAS LAST FILLED #October Tiotropium [place] 1 Inh Aerp, 1 CAP IH DAILY, (Reported) LAST FILLED #90 11-24-18 Patient Home Medication List Home Medication List Reviewed: Yes Physical Exam-Cardiology Physical Exam Vital Signs/I&O 05/21/19 05/21/19 05/21/19 05/21/19 12:50 12:50 15:01 15:04 Temp 36.6 36.6 Pulse 70 70 67 Resp 20 18 16 B/P (MAP) 138/95 (109) 115/78 130/66 Pulse Ox 96 96 96 O2 Delivery Room Air Room Air 05/21/19 05/21/19 05/21/19 05/21/19 15:04 15:45 16:00 16:04 Temp 36.6 Pulse 67 67 72 Resp 16 17 B/P (MAP) 130/66 (87) 114/75 (88) 114/63 (80) Pulse Ox 96 95 94 O2 Delivery Room Air Room Air Room Air Room Air 05/21/19 05/21/19 05/21/19 16:15 16:30 16:51 Pulse 68 68 72 B/P (MAP) 124/78 (93) 115/75 (88) Pulse Ox 96 96 O2 Delivery Room Air Room Air Capillary Refill : Less Than 3 Seconds Constitutional: appears stated age, AAO x 3; No apparent distress; well- developed, well-nourished HEENT: PERRL; No discharge; hearing is well preserved, oral hygience is good; No ulceration, No xanthelasmas are seen Neck: No carotid bruit; carotid pulses are 2 + bilaterally Respiratory: chest is bilaterally symmetric, lungs clear to auscultation Cardiovascular: regular rate-rhythm, S1 and S2 Gastrointestinal: soft, audible bowel sounds; No spleenomegaly Rectal: deferred Extremities: normal range of motion, non-tender, normal inspection; No clubbing, No cyanosis; no lower extremity edema bilateral; No significant edema Neurologic/Psychiatric: no motor/sensory deficits, alert, normal mood/affect, oriented x 3, power is 5/5 both on sides Skin: normal color; No rash, No ulcerations Data Review Labs Laboratory Tests 05/21/19 12:55: White Blood Count 6.9, Red Blood Count 5.29, Hemoglobin 14.8, Hematocrit 45, Mean Corpuscular Volume 85, Mean Corpuscular Hemoglobin 28, Mean Corpuscular Hemoglobin Concent 33, Red Cell Distribution Width 13.9, Platelet Count 225, Mean Platelet Volume 9.0, Neutrophils (%) (Auto) 68, Lymphocytes (%) (Auto) 19, Monocytes (%) (Auto) 8, Eosinophils (%) (Auto) 5, Basophils (%) (Auto) 0, Neutrophils # (Auto) 4.7, Lymphocytes # (Auto) 1.3, Monocytes # (Auto) 0.6, Eosinophils # (Auto) 0.3, Basophils # (Auto) 0.0, Prothrombin Time 12.0L, INR Comment 0.9, Activated Partial Thromboplast Time 25, Sodium Level 140, Potassium Level 4.2, Chloride Level 104, Carbon Dioxide Level 26, Anion Gap 10, Blood Urea Nitrogen 18, Creatinine 0.94, Estimat Glomerular Filtration Rate > 60, BUN/Creatinine Ratio 19, Glucose Level 105, Calcium Level 9.0, Corrected Calcium 8.8, Magnesium Level 1.8, Total Bilirubin 0.3, Aspartate Amino Transf (AST/SGOT) 31, Alanine Aminotransferase (ALT/SGPT) 62H, Alkaline Phosphatase 95, Myoglobin 49.4, Troponin I < 0.028, B-Type Natriuretic Peptide 30.7, Total Protein 6.8, Albumin 4.2 05/21/19 16:49: Troponin I < 0.028, Triglycerides Level 130, Cholesterol Level 282H, LDL Cholesterol Direct 199H, VLDL Cholesterol 26, HDL Cholesterol 60 ECG Impression ECG Initial ECG Rhythm: Normal Sinus Initial ECG Impression: Nonspecific Changes A/P-Cardiology Assessment/Admission Diagnosis Unstable angina, History of CAD, multiple PCI, Shortness of breath, Severe claudication, left more than right. Untreated hyperlipidemia. Plan Unstable angina, coronary angiography today. Informed consent taken. 1-1-1/2 percent risk of major complication. History of CAD, multiple PCI, patient will require at least aspirin. He is not on statin therapy as well. Shortness of breath, echocardiogram. BNP within normal limits. Congestive heart failure is unlikely. Severe claudication with history of bilateral iliac stents. Patient has left lower extremity resting discomfort. We will perform peripheral angiogram as well. Patient will likely require aspirin and Plavix long-term. Thank you for your consultation. Please call me if you have any questions. Alexandria Mariee MD, FACP, FACC, FSCAI, FHRS, CCDS Interventional Cardiology Cardiac Electrophysiology Vascular Medicine and Endovascular Interventions Clinical Quality Measures AMI/AHF: ASA po Prior to arrival: No DVT/VTE Risk/Contraindication: Risk Factor Score Per Nursin RFS Level Per Nursing on Admit: 3=High Denis MARIEE MD May 21, 2019 16:41
[2019-05-21] MEDS ORDERED: ENOXAPARIN 40 MG/0.4 ML (LOVENOX) SYR SC SCH (17:00)
[2019-05-21 17:20] LABS: CHOLESTEROL 282 MG/DL (< 200); HDL CHOLESTEROL 60 MG/DL (40-60); TRIGLYCERIDES 130 MG/DL (<150); VLDL CHOLESTEROL 26 MG/DL (5-40)
--- NOTE | 2019-05-21 17:30 | NUR ---
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
[2019-05-21] MEDS ORDERED: MIDAZOLAM 5 MG/5 ML (VERSED) VIAL ONE (17:32)
[2019-05-21] MEDS ORDERED: HEParin 1000 UNIT/ML (10ML VIAL) FOR BOLUS ONE ×2 (17:32→19:15)
[2019-05-21] MEDS ORDERED: NITRO DRIP 25000 MCG/D5W 250 ML IV ONE (17:32)
[2019-05-21] MEDS ORDERED: fentaNYL INJECTION 100 MCG/2 ML AMP ONE (17:32)
--- NOTE | 2019-05-21 17:53 | Cardiac Procedure Note-CS/ASA ---
Pre-Procedure Note Pre-Op Procedure Note H&P Reviewed The H&P was reviewed, patient examined and no changes noted. Date H&P Reviewed: May 21, 2019 Time H&P Reviewed: 16:00 Conscious Sedation Pre-Proced Time 16:00 ASA Score 3 For ASA 3 and 4: Consider anesthesia and medical clearance. Also, for patients with a history of failed moderate sedation consider anesthesia. Airway Lungs Heart ASA score ASA 1: a normal healthy patient ASA 2: a patient with a mild systemic disease (mid diabetes, controlled hypertension, obesity ASA 3: a patient with a severe systemic disease that limits activity (angina, COPD, prior Myocardial infarction) ASA 4: a patient with an incapacitating disease that is a constant threat to life (CHF, renal failure) ASA 5: a moribund patient not expected to survive 24 hrs. (ruptured aneurysm) ASA 6: a declared brain- patient whose organs are being harvested. For emergent operations, add the letter E after the classification Mallampati Classification Grade 1 Sedation Plan Analgesia, Amnesia, Plan communicated to team members, Discussed options with patient/fam, Discussed risks with patient/fam The patient is an appropriate candidate to undergo the planned procedure, sedation, and anesthesia. The patient immediately re-assessed prior to indication. Denis VADLOVINOS MD May 21, 2019 17:53
[2019-05-21] MEDS ORDERED: ADENOSINE 3 MG/1 ML (ADENOSCAN) 30ML VIAL IV ONE ×2 (18:13→18:15)
[2019-05-21] MEDS ORDERED: TICAGRELOR 90 MG TABLET (BRILINTA) PO ONE (19:06)
[2019-05-21] MEDS ORDERED: ASPIRIN 81 MG CHEW (CHILDREN'S ASA) ONE (19:06)
[2019-05-21] MEDS ORDERED: EPTIFIBATIDE BOLUS 20 ML IV ONE (19:38)
[2019-05-21] MEDS ORDERED: NS IV 1000 ML 1,000 ML ONE (19:40)
--- NOTE | 2019-05-21 19:50 | Coronary Angiography & PCI ---
Coronary Angiography & PCI DATE OF PROCEDURE: 05/21/19 INDICATION: Unstable angina. Significant claudication. PREOPERATIVE DIAGNOSIS: Unstable angina. Significant claudication. POSTOPERATIVE DIAGNOSIS: Moderate severe LAD stenosis treated successfully with 2 drug-eluting stents. Patent bilateral iliac stents. HISTORY: This is a 58-year-old gentleman with previous history of PCI. He presents with prolonged episode of chest pain very similar to his previous episodes. Relief after 2 nitroglycerin. Patient also complains of resting discomfort in the left lower extremity. History of previous bilateral iliac stents. Therefore, the patient was scheduled for coronary and peripheral angiography. PROCEDURES PERFORMED: 1.Coronary angiography. 2.Left heart catheterization. 3. FFR to the mid LAD. 4. IVUS to the mid LAD. 5. PCI to the mid LAD with a drug-eluting stent. 6. Abdominal aortogram with bilateral nonselective renal angiogram. 7. Bilateral lower extremity runoff. COMPLICATIONS: None. SPECIMENS: None. ESTIMATED BLOOD LOSS: 10 mL ANESTHESIA: Conscious sedation ANTICOAGULATION: IV heparin CONTRAST: 275 ML. FLUOROSCOPY: 13.0 minutes. FLOUROSCOPY DOSE: 1656 mgy. PROCEDURE DETAILS: The patient is a 58 male and was brought to the [facility] tender restoration labor after informed consent was taken. All the risks and complications were explained in detail; this included the risk of bleeding, vascular damage, stroke, NH and even . The patient was draped and prepped in the usual sterile fashion. Access was gained in the right femoral artery with a 6 Portuguese sheath. Coronary angiography and left heart catheterization was performed with a JR4 and JL4 catheter. Abdominal aortogram and bilateral lower extremity runoff was performed with a pigtail catheter. FINDINGS: 1.Left main: Patent. 2.LAD: Moderate tandem stenosis in the mid LAD. Stenosis severity 50-60 percent. BERTO 2 flow. 3.Left circumflex artery: Diffuse luminal irregularities. 4.RCA: Mild in-stent restenosis of the proximal RCA stent. Mild disease distally. 5.Left heart catheterization: LV pressure 117/14 mmHg. LVEDP 17 mmHg. Aortic pressure 122/78 mmHg. Normal LV function with no wall motion abnormalities. No gradient across the aortic valve. 6. Abdominal aortogram: Mild abdominal aortic disease. Patent bilateral renal arteries. 7. Bilateral lower extremity runoff. Patent iliac stents. No significant PAD. Three-vessel runoff below the knee. RECOMMENDATIONS: FFR and IVUS of the mid LAD is recommended. PCI to the mid LAD. INTERVENTION DETAILS: FFR was done through the diagnostic catheter. We took an FFR wire and crossed the tandem lesion in the mid LAD. The tip of the wire was placed in the distal LAD. Adenosine was started at 140 g per KG per minute. Lowest FFR was 0.80 which is significant. However due to the moderate nature of the stenosis, I decided to perform an IVUS. We exchanged for a JL4 guide catheter. We used the same FFR wire. IVUS was performed from distal LAD to the left main. Significant plaque burden were noted. In the midsegment mean luminal area was around 2.7 cm. Numerous areas of around 3 cm were also noted. Significant eccentric plaque and mild calcification was noted on the IVUS images. Severe mid LAD stenosis on 2 modalities, therefore we decided to proceed with intervention. Patient was given Brilinta 180 mg by mouth. Integrilin bolus. Heparin IV. Mid LAD direct stenting with a Xience Lala 2.75 x 33 mm at 16 solo for 33 seconds. We then overlapped proximally with a Xience Lala 3.5 x 15 mm stent at 16 solo for 15 seconds. We used the same stent balloon to do postdilatation at 14 solo. Excellent results with no residual stenosis and BERTO- 3 flow. Patient tolerated procedure well and did not have any complication. Right femoral artery was closed with a minx device. CONCLUSIONS: 1. Moderate to severe tandem LAD stenosis; severity confirmed with 2 different modalities including FFR and IVUS. PCI done with 2 drug-eluting stents. 2. Dual antiplatelet therapy for at least 1 year. Alexandria Mariee MD, FACP, FACC, [facility] Interventional Cardiology Denis MARIEE MD May 21, 2019 19:50
[2019-05-21] MEDS ORDERED: PATIENT MAY USE OWN MEDS, ALL PO SCH (20:00)
[2019-05-21] MEDS ORDERED: TICAGRELOR 90 MG TABLET (BRILINTA) PO SCH (21:00)
[2019-05-21] MEDS: NS IV 1000 ML 1,000 ML IV SCH (21:26)
[2019-05-22] VITALS: BP 122/70
[2019-05-22 01:00] VITALS: BP 132/68
[2019-05-22 02:00] VITALS: BP 128/77
[2019-05-22 03:00] VITALS: BP 128/82
[2019-05-22 04:00] VITALS: BP 133/79
[2019-05-22 04:24] LABS: HEMOGLOBIN 12.7 G/DL (13.3-17.7); RED CELL DISTRIBUTION WIDTH 13.8 % (10.0-14.5); WHITE BLOOD COUNT 6.1 10^3/uL (4.3-11.0)
[2019-05-22 04:45] LABS: BUN/CREATININE RATIO 27; CALCIUM 8.4 MG/DL (8.5-10.1); CARBON DIOXIDE 22 MMOL/L (21-32); CHLORIDE 108 MMOL/L (98-107); CHOLESTEROL 252 MG/DL (< 200); CREATININE SERUM 0.94 MG/DL (0.60-1.30); GFR ESTIMATED > 60; GLUCOSE 102 MG/DL (70-105); HDL CHOLESTEROL 46 MG/DL (40-60); POTASSIUM 4.1 MMOL/L (3.6-5.0); SODIUM 141 MMOL/L (135-145); TRIGLYCERIDES 206 MG/DL (<150); VLDL CHOLESTEROL 41 MG/DL (5-40)
[2019-05-22] MEDS: NS IV 1000 ML 1,000 ML IV SCH (05:56)
[2019-05-22] MEDS ORDERED: TICAGRELOR 90 MG TABLET (BRILINTA) PO SCH (07:00)
[2019-05-22 08:15] VITALS: BP 139/89
[2019-05-22] MEDS ORDERED: ASPIRIN E.C. 81 MG (ECOTRIN) TAB PO SCH ×2 (09:00)
[2019-05-22] MEDS ORDERED: ATOR80TA76 PO (09:49)
[2019-05-22] MEDS ORDERED: LISI-556 PO (09:49)
[2019-05-22] MEDS ORDERED: ASPI-983 PO (09:49)
[2019-05-22] MEDS ORDERED: MTP25TSR PO (09:49)
[2019-05-22] MEDS ORDERED: CLOP75TA69 PO (09:49)
[2019-05-22] MEDS ORDERED: CLOPIDOGREL 300 MG (PLAVIX) TABLET PO ONE (10:00)
--- NOTE | 2019-05-22 11:56 | NUR ---
0857: PT HAD APPROX 3 MINUTES OF CHEST PAIN HE DESCRIBED SHARP AND THEN DULL TO LEFT CHEST. SUBSIDED PRIOR TO CALLING THIS RN. EKG OBTAINED AND GIVEN TO DR. VALDOVINOS. NO NEW EKG CHANGES AND NO FURTHER COMPLAINTS OF PAIN. 1156: PT DISCHARGED HOME VIA PRIVATE VEHICLE WITH DAUGHTER. PTS AT BEDSIDE DURING DISCHARGE INSTRUCTION EDUCATION. PT UP AD KERRI IN THE ROOM ALL MORNING. RIGHT GROIN BENIGN. D/C INSTRUCTIONS AND F/U GIVEN TO PATIENT. NO FURTHER QUESTIONS VOICED. SCRIPTS GIVEN TO PATIENTS . FLU VAX ADMINISTERED.
--- NOTE | 2019-05-22 12:41 | Discharge Summary ---
Discharge Summary Hospital Course Problems/Dx: (1) Unstable angina Status: Acute (2) CAD (coronary artery disease) Status: Acute Qualifiers: Qualified Codes: I25.110 - Atherosclerotic heart disease of [place] coronary artery with unstable angina pectoris Final Diagnosis: unstable angina Hospital Course Date of Admission: May 21, 2019 at 14:50 Admission Diagnosis : unstable angina Family Physician/Provider: Dee Ward Physician Date of Discharge: 05/22/19 Discharge Diagnosis: unstable angina Hospital Course: Liborio Sheppard is a 58-year-old male with past medical history of coronary artery disease, hyperlipidemia, COPD, depression, GERD, who presented with chest pain and was admitted with unstable angina. Cardiology was consulted and performed left heart catheterization which revealed a significant stenosis of the LAD which was stented. He was started on aspirin, Plavix, metoprolol, and lisinopril. His statin was changed from simvastatin to atorvastatin. He was discharged home in stable condition. He should follow-up with cardiology as scheduled. Labs and Pending Lab Test: Laboratory Tests 05/21/19 12:55: White Blood Count 6.9, Red Blood Count 5.29, Hemoglobin 14.8, Hematocrit 45, Mean Corpuscular Volume 85, Mean Corpuscular Hemoglobin 28, Mean Corpuscular Hemoglobin Concent 33, Red Cell Distribution Width 13.9, Platelet Count 225, Mean Platelet Volume 9.0, Neutrophils (%) (Auto) 68, Lymphocytes (%) (Auto) 19, Monocytes (%) (Auto) 8, Eosinophils (%) (Auto) 5, Basophils (%) (Auto) 0, Neutr ophils # (Auto) 4.7, Lymphocytes # (Auto) 1.3, Monocytes # (Auto) 0.6, Eosinophils # (Auto) 0.3, Basophils # (Auto) 0.0, Prothrombin Time 12.0L, INR Comment 0.9, Activated Partial Thromboplast Time 25, Sodium Level 140, Potassium Level 4.2, Chloride Level 104, Carbon Dioxide Level 26, Anion Gap 10, Blood Urea Nitrogen 18, Creatinine 0.94, Estimat Glomerular Filtration Rate > 60, BUN/Creatinine Ratio 19, Glucose Level 105, Calcium Level 9.0, Corrected Calcium 8.8, Magnesium Level 1.8, Total Bilirubin 0.3, Aspartate Amino Transf (AST/SGOT) 31, Alanine Aminotransferase (ALT/SGPT) 62H, Alkaline Phosphatase 95, Myoglobin 49.4, Troponin I < 0.028, B-Type Natriuretic Peptide 30.7, Total Protein 6.8, Albumin 4.2 05/21/19 16:49: Troponin I < 0.028, Triglycerides Level 130, Cholesterol Level 282H, LDL Cholesterol Direct 199H, VLDL Cholesterol 26, HDL Cholesterol 60 05/22/19 04:19: White Blood Count 6.1, Red Blood Count 4.45, Hemoglobin 12.7L, Hematocrit 39L, Mean Corpuscular Volume 87, Mean Corpuscular Hemoglobin 29, Mean Corpuscular Hemoglobin Concent 33, Red Cell Distribution Width 13.8, Platelet Count 201, Mean Platelet Volume 9.0, Sodium Level 141, Potassium Level 4.1, Chloride Level 108H, Carbon Dioxide Level 22, Anion Gap 11, Blood Urea Nitrogen 25H, Creatinine 0.94, Estimat Glomerular Filtration Rate > 60, BUN/Creatinine Ratio 27, Glucose Level 102, Calcium Level 8.4L, Triglycerides Level 206H, Cholesterol Level 252H, LDL Cholesterol Direct 174H, VLDL Cholesterol 41H, HDL Cholesterol 46 Home Meds Active Plavix (Clopidogrel Bisulfate) 75 Mg Tablet 75 Mg PO DAILY 90 Days Aspirin EC (Aspirin) 81 Mg Tablet.dr 81 Mg PO DAILY 90 Days Lisinopril 5 Mg Tablet 2.5 Mg PO DAILY 90 Days Metoprolol Succinate 25 Mg Tab.er.24h 25 Mg PO DAILY 90 Days Atorvastatin Calcium 80 Mg Tablet 80 Mg PO HS 90 Days Reported Pantoprazole Sodium 40 Mg Tablet.dr 40 Mg PO DAILY LAST FILLED #90 11-24-18 Bupropion Xl (Bupropion HCl) 300 Mg Tab.er.24h 300 Mg PO DAILY LAST FILLED #90 07-22-18 Meloxicam 15 Mg Tablet 15 Mg PO DAILY LAST FILLED #90 11-25-18 Escitalopram Oxalate 20 Mg Tablet 20 Mg PO DAILY LAST FILLED #90 11-24-18 Isosorbide Mononitrate ER (Isosorbide Mononitrate) 30 Mg Tab.er.24h 30 Mg PO DAILY LAST FILLED #90 07-22-18 Nitroglycerin 0.4 Mg Tab.subl 0.4 Mg SL UD PRN Symbicort 160-4.5 Mcg Inhaler (Budesonide/Formoterol Fumarate) 10.2 Gm Hfa.aer.ad 2 Puff INH BID Proair Hfa (Albuterol Sulfate) 1 Puff Puff 2 Puff IH QID PRN LAST FILLED 11-24-18 Spiriva (Tiotropium [place]) 1 Inh Aerp 1 Cap IH DAILY LAST FILLED #90 11-24-18 Excedrin Migraine Caplet (Aspirin/Acetaminophen/Caffeine) 1 Each Tablet 2 Tab PO Q6H PRN Assessment/Pt Instructions take medications as prescribed. Pickup your new prescriptions at the pharmacy. Follow up with cardiology. Return with worsening chest pain or shortness of breath. Discharge Instructions Discharge Diet: Low Sodium Diet Activity as Tolerated: Yes Pneumonia Vaccine Order Indica: Yes Consultations cardiology Discharge Physical Examination General Appearance: Alert, Oriented X3, Cooperative, No Acute Distress HEENT: Atraumatic, PERRLA, EOMI, Mucous Memb Moist/[place] Respiratory: Clear to Auscultation, Normal Air Movement Cardiovascular: Regular Rate, Normal S1, Normal S2, No Murmurs Abdominal: Normal Bowel Sounds, Soft, No Tenderness Extremities: No Edema, No Tenderness/Swelling Skin: No Rashes, No Significant Lesion Neuro: Normal Speech, Strength at 5/5 X4 Ext Psych/Mental Status: Mental Status NL, Mood NL Allergies: Coded Allergies: erythromycin base (Unverified Allergy, Intermediate, HIVES, 03/19/16) codeine (Unverified Adverse Reaction, Mild, NAUSEA, IRRITABILITY, 03/19/16) Discharge Summary Date of Admission May 21, 2019 at 14:50 Date of Discharge Discharge Date: May 22, 2019 Discharge Time: 12:40 Admission Diagnosis unstable angina Consults/Procedures Consulations unstable angina Procedures left heart catheterization Discharge Diagnosis coronary artery disease with unstable angina (1) CAD (coronary artery disease) Status: Acute Qualifiers: Qualified Codes: I25.110 - Atherosclerotic heart disease of [place] coronary artery with unstable angina pectoris Clinical Quality Measures AMI/AHF: ASA po Prior to arrival: No DVT/VTE Risk/Contraindication: Risk Factor Score Per Nursin RFS Level Per Nursing on Admit: 3=High NATALIE CAREY MD May 22, 2019 12:41
--- NOTE | 2019-05-22 16:10 | Cardiology Progress Note ---
Cardiology SOAP Progress Note Subjective: No cardiac complaints. Objective: I&O/Vital Signs Weight (Pounds): 183 Weight (Ounces): 2.0 Weight (Calculated Kilograms): 83.888750 Constitutional: appears stated age, AAO x 3; No apparent distress; well- developed, well-nourished Respiratory: chest is bilaterally symmetric, lungs clear to auscultation Cardiovascular: regular rate-rhythm, S1 and S2 Gastrointestional: soft, audible bowel sounds; No spleenomegaly Extremities: normal range of motion, non-tender, normal inspection; No clubbing, No cyanosis; no lower extremity edema bilateral; No significant edema Neurologic/Psychiatric: no motor/sensory deficits, alert, normal mood/affect, oriented x 3, power is 5/5 both on sides Skin: normal color; No rash, No ulcerations Results/Procedures: Labs A/P: Assessment/Dx: Unstable angina, History of CAD, multiple PCI, Shortness of breath, Severe claudication, left more than right. Untreated hyperlipidemia. Plan: Unstable angina, coronary angiography 05/21/2019 showed moderate tandem LAD stenosis. FFR 0.80. I was still not convinced due to moderate nature of the stenosis. Therefore IVUS was done which showed severe diffuse LAD disease with MLA ~ 2.7 cm2. PCI was done with 2 drug-eluting stents. Excellent results post intervention. Long-term dual antiplatelet therapy. History of CAD, multiple PCI, patient will require at least aspirin. Statin therapy started. Shortness of breath, echocardiogram. BNP within normal limits. Congestive heart failure is unlikely. Severe claudication with history of bilateral iliac stents. Patient has left lower extremity resting discomfort. Peripheral angiogram showed patent bilateral iliac stents. No significant PAD distally. Thank you for your consultation. Please call me if you have any questions. Alexandria Mariee MD, FACP, FACC, FSCAI, FHRS, CCDS Interventional Cardiology Cardiac Electrophysiology Vascular Medicine and Endovascular Interventions Clinical Quality Measures AMI/AHF: ASA po Prior to arrival: Denis Galdamez MD May 22, 2019 16:10
[2019-05-23] MEDS ORDERED: lisINopril 5 MG (PRINIVIL) TABLET PO SCH (09:00)
== END 2019-05-22 11:56 | disposition home or self-care (01) ==
LOC: ER 12:50 → EDUNIT# 12:50 → 4TH 14:50 → CSD 21:10
PROVIDERS: ADMIT Internal Medicine; ATTEND Internal Medicine
DX: I25.110 Atherosclerotic heart disease of native coronary artery with unstable angina pectoris (principal); I73.9 Peripheral vascular disease, unspecified; J43.9 Emphysema, unspecified; I25.2 Old myocardial infarction; E78.00 Pure hypercholesterolemia, unspecified; M19.90 Unspecified osteoarthritis, unspecified site; L40.9 Psoriasis, unspecified; F32.9 Major depressive disorder, single episode, unspecified; Z88.1 Allergy status to other antibiotic agents; Z88.5 Allergy status to narcotic agent; Z79.82 Long term (current) use of aspirin; Z79.899 Other long term (current) drug therapy; Z87.891 Personal history of nicotine dependence; Z80.0 Family history of malignant neoplasm of digestive organs; Z80.1 Family history of malignant neoplasm of trachea, bronchus and lung; Z82.49 Family history of ischemic heart disease and other diseases of the circulatory system
CPT/HCPCS: 36415; 71045; 75625; 75716; 80048; 80053; 80061; 83735; 83874; 83880; 84484; 85025; 85027; 85347; 85610; 85730; 93005; 93041; 93306; 93458

== ENCOUNTER 2020-02-03 09:51 | Emergency (ER) | payer BC, OTHER ==
[~2020-02-03] VITALS: Ht 185.5 cm; Wt 106.6 kg
[~2020-02-03 09:51] MED LIST changes: +ASPI-1238 PO; -ASPI-983 PO; +BUDE10.2 INH; +BUPR300T98 PO; +CLOP75TA69 PO; +ESCI20TA45 PO; +MELO15TA39 PO; +MTP25TSR PO; +NITR0.4T42 SL; +PANT40TA52 PO
--- NOTE | 2020-02-03 10:48 | NUR ---
PT IS COMMUNICATING BY CELL WITH .
[2020-02-03 10:54] LABS: BASOPHILS % (AUTO) 1 % (0-10); EOSINOPHILS # (AUTO) 0.2 10^3/uL (0.0-0.3); EOSINOPHILS % (AUTO) 5 % (0-10); HEMATOCRIT 39 % (40-54); HEMOGLOBIN 13.2 g/dL (13.3-17.7); LYMPHOCYTES # (AUTO) 1.2 10^3/uL (1.0-4.0); LYMPHOCYTES % (AUTO) 23 % (12-44); MEAN CORPUSCULAR HEMOGLOBIN 30 pg (25-34); MEAN CORPUSCULAR HGB CONC 34 g/dL (32-36); MEAN CORPUSCULAR VOLUME 89 fL (80-99); MEAN PLATELET VOLUME 9.3 fL (9.0-12.2); MONOCYTES # (AUTO) 0.3 10^3/uL (0.0-1.0); MONOCYTES % (AUTO) 7 % (0-12); NEUTROPHILS # (AUTO) 3.3 10^3/uL (1.8-7.8); NEUTROPHILS % (AUTO) 65 % (42-75); PLATELET COUNT 224 10^3/uL (130-400); WHITE BLOOD COUNT 5.1 10^3/uL (4.3-11.0)
[2020-02-03 11:11] LABS: ALBUMIN 3.7 GM/DL (3.2-4.5); CHLORIDE 105 MMOL/L (98-107); POTASSIUM 3.8 MMOL/L (3.6-5.0); SODIUM 139 MMOL/L (135-145)
[2020-02-03 11:13] LABS: CALCIUM 8.2 MG/DL (8.5-10.1)
[2020-02-03 11:14] LABS: GLUCOSE 105 MG/DL (70-105)
[2020-02-03 11:15] LABS: CARBON DIOXIDE 24 MMOL/L (21-32)
[2020-02-03] MEDS ORDERED: ASPIRIN 81 MG CHEW (CHILDREN'S ASA) PO ONE (11:15)
[2020-02-03 11:16] LABS: BILIRUBIN,TOTAL 0.3 MG/DL (0.1-1.0)
--- NOTE | 2020-02-03 11:16 | Diagnostic Imaging Report ---
INDICATION: Chest pain. COMPARISON: Exam compared to 05/21/2019. FINDINGS: There is air trapping and COPD as chronic findings. No focal infiltrate, failure, effusion, or pneumothorax. IMPRESSION: Stable chronic findings. Dictated by: Dictated on workstation # [id number]
[2020-02-03 11:17] LABS: ALKALINE PHOSPHATASE 113 U/L (40-136); CREATININE SERUM 1.18 MG/DL (0.60-1.30); GFR ESTIMATED > 60
[2020-02-03 11:18] LABS: BUN/CREATININE RATIO 16
[2020-02-03 11:20] LABS: ALANINE AMINOTRANSFERASE 33 U/L (0-55); INR 0.9 (0.8-1.4); MAGNESIUM 1.8 MG/DL (1.6-2.4)
--- NOTE | 2020-02-03 12:35 | NUR ---
RESTING IN BED. NOTIFIED THAT A TROPONIN WILL BE DRAWN AT 1300. DENIES NEEDS AT THIS TIME.
--- NOTE | 2020-02-03 12:55 | NUR ---
REPORT AND CARE TURNED OVER TO ANGELINA.
--- NOTE | 2020-02-03 15:09 | ED Chest Pain ---
General Chief Complaint: Chest Pain Stated Complaint: CP Nursing Triage Note: Pt arrived by private vehicle with chief complaint of chest pain and SOB. Pt stated that pain started about 1.5 hour prior to arrival. Pt took 3 nitros at home. The nitros made his chest top hurting, pain was a 15 at home. Pt had heart attack 6 weeks ago. Pt has history COPD (SOB is normal he stated), multiple heart attacks, high cholesterol, CAD, PVD, and total of 6 stents. Vital signs were taken, hooked to the monitor, EKG and IV started with blood drawn. Nursing Sepsis Screen: No Definite Risk Source: patient Exam Limitations: no limitations History of Present Illness Date Seen by Provider: Feb 03, 2020 Time Seen by Provider: 10:26 Initial Comments This 59-year-old gentleman presents to the emergency room with fairly intense pain in the chest that radiated to the neck and left arm starting between 08:00 and 08:30. He has history of coronary artery disease and reportedly had a cardiac event with cardiac catheter about 6 weeks ago. 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 He took 3 nitroglycerin and his chest pain resolved in route to the hospital. He denies other symptoms of infectious illness such as new cough, fever, vomiting, diarrhea, etc. He has had no known alvarez virus exposures. Allergies and Home Medications Allergies Coded Allergies: erythromycin base (Unverified Allergy, Intermediate, HIVES, 03/19/16) codeine (Unverified Adverse Reaction, Mild, NAUSEA, IRRITABILITY, 03/19/16) Home Medications Albuterol Sulfate 1 Puff Puff, 2 PUFF IH QID PRN for SHORTNESS OF BREATH, (Reported) LAST FILLED 11-24-18 Aspirin 81 Mg Tablet.dr, 81 MG PO DAILY Prescribed by: NATALIE CAREY on 05/22/19948 Aspirin/Acetaminophen/Caffeine 1 Each Tablet, 2 TAB PO Q6H PRN for Headache, (Reported) Atorvastatin Calcium 80 Mg Tablet, 80 MG PO HS Prescribed by: NATALIE CAREY on 05/22/19948 Budesonide/Formoterol Fumarate 10.2 Gm Hfa.aer.ad, 2 PUFF INH BID, (Reported) Bupropion HCl 300 Mg Tab.er.24h, 300 MG PO DAILY, (Reported) LAST FILLED #90 07-22-18 Clopidogrel Bisulfate 75 Mg Tablet, 75 MG PO DAILY Prescribed by: NATALIE CAREY on 05/22/19948 Escitalopram Oxalate 20 Mg Tablet, 20 MG PO DAILY, (Reported) LAST FILLED #90 11-24-18 Isosorbide Mononitrate 30 Mg Tab.er.24h, 30 MG PO DAILY, (Reported) LAST FILLED #90 07-22-18 Lisinopril 5 Mg Tablet, 2.5 MG PO DAILY Prescribed by: NATALIE CAREY on 05/22/19948 Meloxicam 15 Mg Tablet, 15 MG PO DAILY, (Reported) LAST FILLED #90 11-25-18 Metoprolol Succinate 25 Mg Tab.er.24h, 25 MG PO DAILY Prescribed by: NATALIE CAREY on 05/22/19948 Nitroglycerin 0.4 Mg Tab.subl, 0.4 MG SL UD PRN for CHEST PAIN (ANGINA), (Reported) Pantoprazole Sodium 40 Mg Tablet.dr, 40 MG PO DAILY, (Reported) LAST FILLED #90 11-24-18 Tiotropium [place] 1 Inh Aerp, 1 CAP IH DAILY, (Reported) LAST FILLED #90 11-24-18 Patient Home Medication List Home Medication List Reviewed: Yes Review of Systems Review of Systems Constitutional: no symptoms reported EENTM: No Symptoms Reported Respiratory: No Symptoms Reported Cardiovascular: See HPI Gastrointestinal: No Symptoms Reported Genitourinary: No Symptoms Reported Musculoskeletal: no symptoms reported Skin: no symptoms reported Psychiatric/Neurological: No Symptoms Reported Endocrine: No Symptoms Reported Hematologic/Lymphatic: No Symptoms Reported Past Ngptggn-[id number]-[id number] Hx Past Med/Social Hx: Reviewed Nursing Past Med/Soc Hx Patient Social History Alcohol Use: Denies Use Recreational Drug Use: No Smoking Status: Never a Smoker Type Used: Cigarettes Former Smoker, Quit: Apr 29, 2007 2nd Hand Smoke Exposure: No Recent Foreign Travel: No Contact w/Someone Who Travel: No Recent Infectious Disease Expo: No Recent Hopitalizations: No Physical Abuse: No Sexual Abuse: No Mistreated: No Fear: No Immunizations Up To Date Tetanus Booster (TDap): Unknown PED Vaccines UTD: No Date of Pneumonia Vaccine: May 21, 2014 Seasonal Allergies Seasonal Allergies: No Past Medical History Surgeries: Yes Coronary Stent, Nose Respiratory: Yes COPD, Emphysema Currently Using CPAP: No Currently Using BIPAP: No Cardiac: Yes Coronary Artery Disease, Heart Attack, High Cholesterol, Peripheral Vascular Neurological: No Reproductive Disorders: No Genitourinary: No Gastrointestinal: No Musculoskeletal: Yes Arthritis, Fractures Endocrine: No HEENT: No Cancer: No Psychosocial: Yes Depression Integumentary: Yes (psoriasis) Psoriasis Blood Disorders: No Adverse Reaction/Blood Tranf: No Family Medical History Colon cancer 19 MOTHER FH: lung cancer 19 FATHER Thyroid disease 19 MOTHER Heart Disease Physical Exam Vital Signs Vital Signs - First Documented 02/03/20 02/03/20 09:52 10:03 Temp 36.8 Pulse 53 Resp 17 B/P (MAP) 111/70 (84) Pulse Ox 97 O2 Delivery Room Air Capillary Refill : Less Than 3 Seconds Height, Weight, BMI Height: 6'0.00" Weight: 183lbs. 2.0oz. 83.007018vk; 30.00 BMI Method:Stated General Appearance: No Apparent Distress, WD/WN HEENT: PERRL/EOMI, Normal ENT Inspection Neck: Normal Inspection Respiratory: Lungs Clear, Normal Breath Sounds, No Accessory Muscle Use Cardiovascular: Regular Rate, Rhythm, No Edema, No Murmur Gastrointestinal: Normal Bowel Sounds, Non Tender, Soft Extremity: Normal Inspection, Non Tender, No Pedal Edema Neurologic/Psychiatric: Alert, Oriented x3, No Motor/Sensory Deficits, Normal Mood/Affect, director financial systems II-XII Norm as Tested Skin: Normal Color, Warm/Dry Procedures/Interventions Suture Size: 4-0 Progress/Results/Core Measures Results/Orders Lab Results Laboratory Tests Test 02/03/20 10:20 02/03/20 13:04 Range/Units White Blood Count 5.1 4.3-11.0 10^3/uL Red Blood Count 4.34 4.30-5.52 10^6/uL Hemoglobin 13.2 L 13.3-17.7 g/dL Hematocrit 39 L 40-54 % Mean Corpuscular Volume 89 80-99 fL Mean Corpuscular Hemoglobin 30 25-34 pg Mean Corpuscular Hemoglobin Concent 34 32-36 g/dL Red Cell Distribution Width 13.2 10.0-14.5 % Platelet Count 224 130-400 10^3/uL Mean Platelet Volume 9.3 9.0-12.2 fL Immature Granulocyte % (Auto) 1 % Neutrophils (%) (Auto) 65 42-75 % Lymphocytes (%) (Auto) 23 12-44 % Monocytes (%) (Auto) 7 0-12 % Eosinophils (%) (Auto) 5 0-10 % Basophils (%) (Auto) 1 0-10 % Neutrophils # (Auto) 3.3 1.8-7.8 10^3/uL Lymphocytes # (Auto) 1.2 1.0-4.0 10^3/uL Monocytes # (Auto) 0.3 0.0-1.0 10^3/uL Eosinophils # (Auto) 0.2 0.0-0.3 10^3/uL Basophils # (Auto) 0.0 0.0-0.1 10^3/uL Immature Granulocyte # (Auto) 0.1 0.0-0.1 10^3/uL Prothrombin Time 13.0 12.2-14.7 SEC INR Comment 0.9 0.8-1.4 Activated Partial Thromboplast Time 27 24-35 SEC Sodium Level 139 135-145 MMOL/L Potassium Level 3.8 3.6-5.0 MMOL/L Chloride Level 105 98-107 MMOL/L Carbon Dioxide Level 24 21-32 MMOL/L Anion Gap 10 5-14 MMOL/L Blood Urea Nitrogen 19 H 7-18 MG/DL Creatinine 1.18 0.60-1.30 MG/DL Estimat Glomerular Filtration Rate > 60 BUN/Creatinine Ratio 16 Glucose Level 105 70-105 MG/DL Calcium Level 8.2 L 8.5-10.1 MG/DL Corrected Calcium 8.4 L 8.5-10.1 MG/DL Magnesium Level 1.8 1.6-2.4 MG/DL Total Bilirubin 0.3 0.1-1.0 MG/DL Aspartate Amino Transf (AST/SGOT) 19 5-34 U/L Alanine Aminotransferase (ALT/SGPT) 33 0-55 U/L Alkaline Phosphatase 113 40-136 U/L Myoglobin 25.1 10.0-92.0 NG/ML Troponin I < 0.028 < 0.028 <0.028 NG/ML B-Type Natriuretic Peptide 32.6 <100.0 PG/ML Total Protein 6.0 L 6.4-8.2 GM/DL Albumin 3.7 3.2-4.5 GM/DL My Orders Orders - REBEKAH HUNTER MD Cbc With Automated Diff (02/03/20 10:26) Magnesium (02/03/20 10:26) Chest 1 View, Ap/Pa Only (02/03/20 10:26) Ekg Tracing (02/03/20 10:26) Comprehensive Metabolic Panel (02/03/20 10:26) Myoglobin Serum (02/03/20 10:26) Protime With Inr (02/03/20 10:26) Partial Thromboplastin Time (02/03/20 10:26) O2 (02/03/20 10:26) Monitor-Rhythm Ecg Trace Only (02/03/20 10:26) Ed Iv/Invasive Line Start (02/03/20 10:26) Troponin I (02/03/20 10:26) BNP (02/03/20 10:26) Aspirin Chewable Tablet (Baby Aspirin Ch (02/03/20 11:15) Troponin I (02/03/20 12:30) Ekg Tracing (02/03/20 13:27) Medications Given in ED Current Medications Medications Dose Ordered Sig/Deb Route Start Time Stop Time Status Last Admin Dose Admin Aspirin 243 mg ONCE ONCE PO 02/03/20 11:15 02/03/20 11:16 DC 02/03/20 11:13 243 MG Vital Signs/I&O 02/03/20 02/03/20 02/03/20 09:52 10:03 15:32 Temp 36.8 36.8 Pulse 53 65 Resp 17 16 B/P (MAP) 111/70 (84) 103/89 Pulse Ox 97 97 O2 Delivery Room Air Room Air Blood Pressure Mean: 84 Progress Progress Note : Progress Note Patient had a normal initial workup. Repeat EKG and troponin were obtained at the 4 hour brittney from onset of symptoms. At that time patient informed me that he had multiple episodes of recurrent chest pain that was brief. For this reason Dr. Galeano was consulted. After reviewing patient's symptoms and record, he was allowed to discharge with strict return precautions and close follow-up with his primary dental assistant instructor. He did receive the balance of his full aspirin dose. EKG #1: EKG Time: 10:03 Rate: 52 Rhythm: Normal Sinus Intervals: Normal ECG Impression: Normal Comment Normal sinus rhythm with no ST elevation or depression. No abnormal intervals o r axis deviation. EKG #2: EKG Time: 13:23 Rate: 51 Rhythm: Normal Sinus Intervals: Normal ECG Impression: Normal Comment Normal sinus rhythm with no ST elevation or depression. No abnormal intervals or axis deviation. No acute change from prior. Departure Impression Primary Impression: Chest pain Qualified Codes: R07.9 - Chest pain, unspecified Disposition: 01 HOME, SELF-CARE Condition: Improved Departure-Patient Inst. Decision time for Depature: 15:08 Referrals: NO,LOCAL PHYSICIAN (PCP/Family) Primary Care Physician Patient Instructions: Chest Pain Add. Discharge Instructions: Continue your medications as previously prescribed. Please follow-up with your dental assistant instructor as soon as possible. Call the office today to inform them of your ER visit and chest pain. Return to the ER promptly if you have recurrent episodes of chest pain not resolved by nitroglycerin. Return to the ER if you have any further urgent problems or concerns. All discharge instructions reviewed with patient and/or family. Voiced understanding. REBEKAH HUNTER MD Feb 03, 2020 15:09
--- NOTE | 2020-02-03 15:25 | Consultation-Cardiology ---
HPI-Cardiology Cardiology Consultation Date of Consultation 02/03/20 Date of Admission Time Seen by Provider: 15:21 Indication: chest pain HPI 59 years old gentleman with history of coronary artery disease, stenting to the LAD, hypertension hyperlipidemia, had a cardiac catheterization in [place] done about a month ago and reported to have patent stent with mild disease did not require intervention (according to the patient). Started to have chest pain in the retrosternal area severe, to 3 sublingual nitroglycerin and came to the emergency room. Initially was feeling better sitting in bed then started to have worsening of the chest pain again and then resolved. EKG did not show any acute abnormality, cardiac enzymes has been negative. Reported occasional chest pain on and off. Was seen by Dr. Mariee in May 18 Home Medications & Allergies Allergies: Coded Allergies: erythromycin base (Unverified Allergy, Intermediate, HIVES, 03/19/16) codeine (Unverified Adverse Reaction, Mild, NAUSEA, IRRITABILITY, 03/19/16) Home Medication List Reviewed: Yes AGD-Ulersc-Loofaz Hx Patient Social History Marital Status: Employed/Student: employed Alcohol Use: Denies Use Recreational Drug Use: No Smoking Status: Never a Smoker Former smoker/When Quit: Apr 29, 2009 Type Used: Cigarettes 2nd Hand Smoke Exposure: No Recent Foreign Travel: No Recent Infectious Disease Expo: No Recent Hopitalizations: No Immunizations Up To Date Tetanus Booster (TDap): Unknown Date of Pneumonia Vaccine: May 21, 2014 Past Medical History Discussed below Family Medical History Significant Family History: Heart Disease Family History: Colon cancer 19 MOTHER FH: lung cancer 19 FATHER Thyroid disease 19 MOTHER Review of Systems-General Review of Systems Constitutional: no symptoms reported, see HPI EENTM: see HPI, no symptoms reported Respiratory: see HPI; No cough; dyspnea on exertion; No hemoptysis, No orthopnea, No phlegm, No short of breath, No stridor, No wheezing, No other Cardiovascular: see HPI, chest pain; No edema, No Hx of Intervention, No palpitations, No syncope, No vascular heart diseas, No other Gastrointestinal: no symptoms reported, see HPI Genitourinary: no symptoms reported, see HPI Musculoskeletal: no symptoms reported, see HPI Skin: no symptoms reported, see HPI Psychiatric/Neurological: No Symptoms Reported, See HPI Reviewed Test Results Reviewed Test Results Lab Laboratory Tests Test 02/03/20 10:20 10/7/20 13:04 Range/Units White Blood Count 5.1 4.3-11.0 10^3/uL Red Blood Count 4.34 4.30-5.52 10^6/uL Hemoglobin 13.2 L 13.3-17.7 g/dL Hematocrit 39 L 40-54 % Mean Corpuscular Volume 89 80-99 fL Mean Corpuscular Hemoglobin 30 25-34 pg Mean Corpuscular Hemoglobin Concent 34 32-36 g/dL Red Cell Distribution Width 13.2 10.0-14.5 % Platelet Count 224 130-400 10^3/uL Mean Platelet Volume 9.3 9.0-12.2 fL Immature Granulocyte % (Auto) 1 % Neutrophils (%) (Auto) 65 42-75 % Lymphocytes (%) (Auto) 23 12-44 % Monocytes (%) (Auto) 7 0-12 % Eosinophils (%) (Auto) 5 0-10 % Basophils (%) (Auto) 1 0-10 % Neutrophils # (Auto) 3.3 1.8-7.8 10^3/uL Lymphocytes # (Auto) 1.2 1.0-4.0 10^3/uL Monocytes # (Auto) 0.3 0.0-1.0 10^3/uL Eosinophils # (Auto) 0.2 0.0-0.3 10^3/uL Basophils # (Auto) 0.0 0.0-0.1 10^3/uL Immature Granulocyte # (Auto) 0.1 0.0-0.1 10^3/uL Prothrombin Time 13.0 12.2-14.7 SEC INR Comment 0.9 0.8-1.4 Activated Partial Thromboplast Time 27 24-35 SEC Sodium Level 139 135-145 MMOL/L Potassium Level 3.8 3.6-5.0 MMOL/L Chloride Level 105 98-107 MMOL/L Carbon Dioxide Level 24 21-32 MMOL/L Anion Gap 10 5-14 MMOL/L Blood Urea Nitrogen 19 H 7-18 MG/DL Creatinine 1.18 0.60-1.30 MG/DL Estimat Glomerular Filtration Rate > 60 BUN/Creatinine Ratio 16 Glucose Level 105 70-105 MG/DL Calcium Level 8.2 L 8.5-10.1 MG/DL Corrected Calcium 8.4 L 8.5-10.1 MG/DL Magnesium Level 1.8 1.6-2.4 MG/DL Total Bilirubin 0.3 0.1-1.0 MG/DL Aspartate Amino Transf (AST/SGOT) 19 5-34 U/L Alanine Aminotransferase (ALT/SGPT) 33 0-55 U/L Alkaline Phosphatase 113 40-136 U/L Myoglobin 25.1 10.0-92.0 NG/ML Troponin I < 0.028 < 0.028 <0.028 NG/ML B-Type Natriuretic Peptide 32.6 <100.0 PG/ML Total Protein 6.0 L 6.4-8.2 GM/DL Albumin 3.7 3.2-4.5 GM/DL Physical Exam Physical Exam Vital Signs Vital Signs - First Documented 02/03/20 02/03/20 09:52 10:03 Temp 36.8 Pulse 53 Resp 17 B/P (MAP) 111/70 (84) Pulse Ox 97 O2 Delivery Room Air Capillary Refill : Less Than 3 Seconds Height, Weight, BMI Height: 6'0.00" Weight: 183lbs. 2.0oz. [id number]; 30.00 BMI Method:Stated General Appearance: No Apparent Distress, WD/WN Eyes: Bilateral Eye Normal Inspection, Bilateral Eye PERRL, Bilateral Eye EOMI HEENT: PERRL/EOMI, TMs Normal, Normal ENT Inspection, Pharynx Normal, Moist Mucous Membranes Neck: Full Range of Motion, Normal Inspection, Non Tender, Supple, Carotid Bruit Respiratory: Chest Non Tender, Normal Breath Sounds, No Accessory Muscle Use, No Respiratory Distress Cardiovascular: Regular Rate, Rhythm, No Edema, No Gallop, No JVD, No Murmur, Normal Peripheral Pulses Gastrointestinal: Normal Bowel Sounds, No Organomegaly, No Pulsatile Mass, Non Tender, Soft Back: Normal Inspection, No CVA Tenderness, No Vertebral Tenderness Extremity: Normal Capillary Refill, Normal Inspection, Normal Range of Motion, Non Tender, No Calf Tenderness, No Pedal Edema Neurologic/Psychiatric: Alert, Oriented x3, No Motor/Sensory Deficits, Normal Mood/Affect Skin: Normal Color, Warm/Dry Lymphatic: No Adenopathy A/P-Cardiology Admission Diagnosis Chest pain Coronary artery disease Hypertension Hyperlipidemia Assessment/Plan Chest pain resembling angina, has been maintained on long-acting right progression, no acute EKG changes, restart nitroglycerin and continue on current medication monitor next Coronary artery disease, had overlapping stents in the LAD done by Dr. Mariee in April 2019. Had another cardiac catheterization done the last month in [facility] reported to have patent stent did not require any intervention and treated medically. Currently not having any acute EKG changes, troponin has been negative. I reassured him. Continue on current medication and okay for discharge and follow-up with his primary weatherization technician as an outpatient Hypertension, restart home medication monitor blood pressure as an outpatient Hyperlipidemia, continue to monitor lipids. History of peripheral arterial disease bilateral iliac stent. Currently asymptomatic. Continue to monitor MASON SHAH MD Feb 03, 2020 15:25
[2020-02-03 15:32] VITALS: BP 103/89
== END 2020-02-03 15:32 | disposition home or self-care (01) ==
LOC: EDUNIT# 09:51 → ER 09:52
DX: R07.9 Chest pain, unspecified (principal); J44.9 Chronic obstructive pulmonary disease, unspecified; I25.2 Old myocardial infarction; F32.9 Major depressive disorder, single episode, unspecified; E78.00 Pure hypercholesterolemia, unspecified; Z80.8 Family history of malignant neoplasm of other organs or systems; Z80.1 Family history of malignant neoplasm of trachea, bronchus and lung; Z80.0 Family history of malignant neoplasm of digestive organs; Z82.49 Family history of ischemic heart disease and other diseases of the circulatory system; Z87.891 Personal history of nicotine dependence; Z95.5 Presence of coronary angioplasty implant and graft; Z88.5 Allergy status to narcotic agent; Z88.1 Allergy status to other antibiotic agents; Z79.82 Long term (current) use of aspirin
CPT/HCPCS: 36415; 71045; 80053; 83735; 83874; 83880; 84484; 85025; 85610; 85730; 93005; 93041

== ENCOUNTER 2022-11-12 13:27 | Emergency (ER) | payer MEDICARE, OTHER ==
[~2022-11-12] VITALS: Ht 182.8 cm; Wt 86.6 kg
[~2022-11-12 13:27] MED LIST changes: +ALBU8.5H6 IH; -ASPI-789 PO; +ASPI1TAB23 PO; +CLOP-31 PO; -CLOP75TA69 PO; +ESCI20TA39 PO; -ESCI20TA45 PO; +ISOS30TA82 PO; +LISI5TAB20 PO; -RT-ALBUINH IH; -SULF1TAB35 PO; +SULF1TAB38 PO; +TIZA-186 PO; -TIZA4TAB4 PO
--- NOTE | 2022-11-12 13:48 | ED Chest Pain ---
General Chief Complaint: Chest Pain Stated Complaint: ABNORMAL EKG | CHEST PAINS Nursing Triage Note: PT AMB TO RM 7 WITH CC OF LEFT SIDED INTERMITTENT CP SINCE YESTERDAY. PT TOOK NITRO LAST NIGHT AT 10PM AND HAD RELIEF. PT DEVELOPED CP AGAIN AT 6AM TODAY AND WENT TO [facility]. PT HAS CARDIAC HX. [facility] SENT PT TO ER FOR FURTHER EVAULATION. History of Present Illness Date Seen by Provider: Nov 12, 2022 Time Seen by Provider: 13:45 Initial Comments 62-year-old male presents with chest pain. Patient reports he has had intermittent chest pain since yesterday. He reports that it comes and goes. Nothing seems to make it worse or better. His more in the lateral chest wall. He does report that he has had prior stents. That last night he took a nitro around 10 PM and seemed to have little relief. He has been having chest pain again since 6 AM this morning. Patient follows with hay stacker operator in [place]. Patient went to his primary care provider where he had a EKG that showed no acute findings. He was sent to the ER for further evaluation. He currently has very mild discomfort to the lateral chest wall. No fevers chills nausea or vomiting associated with it. No diaphoresis. Allergies and Home Medications Allergies Coded Allergies: erythromycin base (Unverified Allergy, Intermediate, HIVES, 03/19/16) codeine (Unverified Adverse Reaction, Mild, NAUSEA, IRRITABILITY, 03/19/16) Patient Home Medication List Home Medication List Reviewed: Yes Albuterol Sulfate (Ventolin Hfa) 1 Puff Puff, 2 PUFF IH QID PRN for SHORTNESS OF BREATH, (Reported) Entered as Reported by: MATTHEW LEACH on 12/31/18 1138 Aspirin (Aspirin EC) 81 Mg Tablet.dr, 81 MG PO DAILY Prescribed by: NATALIE CAREY on 05/22/19 0949 Aspirin/Acetaminophen/Caffeine (Excedrin Migraine Caplet) 1 Each Tablet, 2 TAB PO Q6H PRN for Headache, (Reported) Entered as Reported by: MATTHEW LEACH on 12/31/18 1138 Atorvastatin Calcium (Atorvastatin Calcium) 80 Mg Tablet, 80 MG PO HS Prescribed by: NATALIE CAREY on 05/22/19 0949 Budesonide/Formoterol Fumarate (Symbicort 160-4.5 Mcg Inhaler) 10.2 Gm Hfa.aer.ad, 2 PUFF INH BID, (Reported) Entered as Reported by: MATTHEW LEACH on 05/21/19 1551 Bupropion HCl (Bupropion Xl) 300 Mg Tab.er.24h, 300 MG PO DAILY, (Reported) Entered as Reported by: MATTHEW LEACH on 05/21/19 1606 Clopidogrel Bisulfate (Plavix) 75 Mg Tablet, 75 MG PO DAILY Prescribed by: NATALIE CAERY on 05/22/19 0949 Escitalopram Oxalate (Escitalopram Oxalate) 20 Mg Tablet, 20 MG PO DAILY, (Reported) Entered as Reported by: MATTHEW LEACH on 05/21/19 1606 Isosorbide Mononitrate (Isosorbide Mononitrate ER) 30 Mg Tab.er.24h, 30 MG PO DAILY, (Reported) Entered as Reported by: MATTHEW LEACH on 05/21/19 1606 Lisinopril (Lisinopril) 5 Mg Tablet, 2.5 MG PO DAILY Prescribed by: NATALIE CAREY on 05/22/19 0949 Meloxicam (Meloxicam) 15 Mg Tablet, 15 MG PO DAILY, (Reported) Entered as Reported by: MATTHEW LEACH on 05/21/19 160 Metoprolol Succinate (Metoprolol Succinate) 25 Mg Tab.er.24h, 25 MG PO DAILY Prescribed by: NATALIE CAREY on 05/22/19 0949 Nitroglycerin (Nitroglycerin) 0.4 Mg Tab.subl, 0.4 MG SL UD PRN for CHEST PAIN (ANGINA), (Reported) Entered as Reported by: MATTHEW LEACH on 05/21/19 160 Pantoprazole Sodium (Pantoprazole Sodium) 40 Mg Tablet.dr, 40 MG PO DAILY, (Reported) Entered as Reported by: MATTHEW LEACH on 05/21/19 1609 Tiotropium [place] (Spiriva) 1 Inh Aerp, 1 CAP IH DAILY, (Reported) Entered as Reported by: MATTHEW LEACH on 12/31/18 1138 Review of Systems Review of Systems Constitutional: No chills, No fever Respiratory: No Symptoms Reported Cardiovascular: Chest Pain Gastrointestinal: No Symptoms Reported Genitourinary: No Symptoms Reported Musculoskeletal: no symptoms reported Skin: no symptoms reported Psychiatric/Neurological: No Symptoms Reported Endocrine: No Symptoms Reported Past Naqqtbm-Nqkiqb-Mxdltd Hx Patient Social History Tobacco Use?: No Smoking Status: Former Smoker Substance use?: Yes Substance type: Marijuana Alcohol Use?: No Immunizations Up To Date Tetanus Booster (TDap): Unknown PED Vaccines UTD: No Seasonal Allergies Seasonal Allergies: No Past Medical History Surgeries: Yes Coronary Stent, Nose Respiratory: Yes COPD, Emphysema Currently Using CPAP: No Currently Using BIPAP: No Cardiac: Yes Coronary Artery Disease, Heart Attack, High Cholesterol, Peripheral Vascular Neurological: No Reproductive Disorders: No Genitourinary: No Gastrointestinal: No Musculoskeletal: Yes Arthritis, Fractures Endocrine: No HEENT: No Cancer: No Psychosocial: Yes Depression Integumentary: Yes (psoriasis) Psoriasis Blood Disorders: No Adverse Reaction/Blood Tranf: No Family Medical History Colon cancer 19 MOTHER FH: lung cancer 19 FATHER Thyroid disease 19 MOTHER Heart Disease Physical Exam Vital Signs Vital Signs - First Documented 11/12/22 13:29 Temp 36.6 Pulse 66 Resp 20 B/P (MAP) 149/83 (105) Pulse Ox 97 O2 Delivery Room Air Capillary Refill : Height, Weight, BMI Height: 6'0.00" Weight: 183lbs. 2.0oz. 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 Norm as Tested Skin: Normal Color, Warm/Dry Procedures/Interventions Suture Size: 4-0 Progress/Results/Core Measures Results/Orders Lab Results Laboratory Tests Test 11/12/22 13:34 Range/Units White Blood Count 5.2 4.3-11.0 10^3/uL Red Blood Count 4.86 4.30-5.52 10^6/uL Hemoglobin 14.5 13.3-17.7 g/dL Hematocrit 42 40-54 % Mean Corpuscular Volume 86 80-99 fL Mean Corpuscular Hemoglobin 30 25-34 pg Mean Corpuscular Hemoglobin Concent 35 32-36 g/dL Red Cell Distribution Width 13.7 10.0-14.5 % Platelet Count 227 130-400 10^3/uL Mean Platelet Volume 9.3 9.0-12.2 fL Immature Granulocyte % (Auto) 0 % Neutrophils (%) (Auto) 58 42-75 % Lymphocytes (%) (Auto) 28 12-44 % Monocytes (%) (Auto) 8 0-12 % Eosinophils (%) (Auto) 5 0-10 % Basophils (%) (Auto) 1 0-10 % Neutrophils # (Auto) 3.0 1.8-7.8 10^3/uL Lymphocytes # (Auto) 1.5 1.0-4.0 10^3/uL Monocytes # (Auto) 0.4 0.0-1.0 10^3/uL Eosinophils # (Auto) 0.3 0.0-0.3 10^3/uL Basophils # (Auto) 0.0 0.0-0.1 10^3/uL Immature Granulocyte # (Auto) 0.0 0.0-0.1 10^3/uL Sodium Level 140 135-145 MMOL/L Potassium Level 4.1 3.6-5.0 MMOL/L Chloride Level 108 H 98-107 MMOL/L Carbon Dioxide Level 24 21-32 MMOL/L Anion Gap 8 5-14 MMOL/L Blood Urea Nitrogen 20 H 7-18 MG/DL Creatinine 0.91 0.60-1.30 MG/DL Estimat Glomerular Filtration Rate 96 BUN/Creatinine Ratio 22 Glucose Level 94 70-105 MG/DL Calcium Level 9.0 8.5-10.1 MG/DL Corrected Calcium 8.8 8.5-10.1 MG/DL Magnesium Level 2.0 1.6-2.4 MG/DL Total Bilirubin 0.8 0.1-1.0 MG/DL Aspartate Amino Transf (AST/SGOT) 22 5-34 U/L Alanine Aminotransferase (ALT/SGPT) 20 0-55 U/L Alkaline Phosphatase 89 40-136 U/L Troponin I < 0.028 <0.028 NG/ML C-Reactive Protein High Sensitivity 0.07 0.00-0.50 MG/DL Total Protein 6.7 6.4-8.2 GM/DL Albumin 4.2 3.2-4.5 GM/DL My Orders Orders - MONTANEZ,JI L DO Ekg Tracing (11/12/22 13:30) Cbc With Automated Diff (11/12/22 13:42) Comprehensive Metabolic Panel (11/12/22 13:42) Hs C Reactive Protein (11/12/22 13:42) Magnesium (11/12/22 13:42) Troponin I Chris (11/12/22 13:42) Ekg Tracing (11/12/22 13:42) Monitor-Rhythm Ecg Trace Only (11/12/22 13:42) Chest Pa/Lat (2 View) (11/12/22 13:42) Vital Signs/I&O 11/12/22 13:29 Temp 36.6 Pulse 66 Resp 20 B/P (MAP) 149/83 (105) Pulse Ox 97 O2 Delivery Room Air Blood Pressure Mean: 105 Progress Progress Note : Progress Note Patient's diagnostic studies were ordered reviewed and interpreted by me. Patient's labs shows no acute or concerning findings with negative troponin. Patient's EKG showed normal sinus rhythm, ventricular 60, OH 147. He has changes consistent with an old MT which is consistent with his history of stents. Patient's chest x-ray was ordered reviewed with final interpretation by radiology report. Patient is x-ray shows no acute findings. Patient's symptoms are very unlikely related to acute coronary syndrome at this time with a negative troponin with greater than 15 hours when his symptoms started with no increase in troponin or EKG changes. Patient's pain is very nonspecific. Patient will be given Toradol to help with the nonspecific pain. Recommend he call his hay stacker operator upon discharge to arrange for an outpatient evaluation to determine if he would like to do further stress testing or based on his history of a repeat catheter on how long has been versus medication adjustment. Patient should return to the ER with any concerns. He is stable and discharged home. Initial ECG Impression Date: Nov 12, 2022 Initial ECG Impression Time: 13:36 Initial ECG Rate: 60 Initial ECG Rhythm: Normal Sinus Initial ECG Impression: Normal Comment No acute ST elevation or acute changes. Departure Impression Primary Impression: Nonspecific chest pain Disposition: 01 HOME, SELF-CARE Condition: Stable Departure-Patient Inst. Referrals: NO,LOCAL PHYSICIAN (PCP/Family) Primary Care Physician Patient Instructions: Angina (DC), Chest Pain Add. Discharge Instructions: Please call your hay stacker operator to make them aware of your symptoms and to arrange for outpatient follow-up and evaluation. All discharge instructions reviewed with patient and/or family. Voiced understanding. JI MONTANEZ DO Nov 12, 2022 13:48
[2022-11-12 13:49] LABS: BASOPHILS % (AUTO) 1 % (0-10); EOSINOPHILS # (AUTO) 0.3 10^3/uL (0.0-0.3); EOSINOPHILS % (AUTO) 5 % (0-10); HEMATOCRIT 42 % (40-54); HEMOGLOBIN 14.5 g/dL (13.3-17.7); LYMPHOCYTES # (AUTO) 1.5 10^3/uL (1.0-4.0); LYMPHOCYTES % (AUTO) 28 % (12-44); MEAN CORPUSCULAR HEMOGLOBIN 30 pg (25-34); MEAN CORPUSCULAR HGB CONC 35 g/dL (32-36); MEAN CORPUSCULAR VOLUME 86 fL (80-99); MEAN PLATELET VOLUME 9.3 fL (9.0-12.2); MONOCYTES # (AUTO) 0.4 10^3/uL (0.0-1.0); MONOCYTES % (AUTO) 8 % (0-12); NEUTROPHILS % (AUTO) 58 % (42-75); PLATELET COUNT 227 10^3/uL (130-400); WHITE BLOOD COUNT 5.2 10^3/uL (4.3-11.0)
[2022-11-12 13:53] LABS: ALBUMIN 4.2 GM/DL (3.2-4.5); CHLORIDE 108 MMOL/L (98-107); POTASSIUM 4.1 MMOL/L (3.6-5.0); SODIUM 140 MMOL/L (135-145)
[2022-11-12 13:56] LABS: GLUCOSE 94 MG/DL (70-105); TOTAL PROTEIN 6.7 GM/DL (6.4-8.2)
[2022-11-12 13:57] LABS: CARBON DIOXIDE 24 MMOL/L (21-32)
[2022-11-12 13:58] LABS: BILIRUBIN,TOTAL 0.8 MG/DL (0.1-1.0)
[2022-11-12 13:59] LABS: ALKALINE PHOSPHATASE 89 U/L (40-136)
[2022-11-12 14:00] LABS: CREATININE SERUM 0.91 MG/DL (0.60-1.30); GFR ESTIMATED 96
[2022-11-12 14:01] LABS: BUN/CREATININE RATIO 22
[2022-11-12 14:02] LABS: ALANINE AMINOTRANSFERASE 20 U/L (0-55)
--- NOTE | 2022-11-12 14:23 | Diagnostic Imaging Report ---
INDICATION: Intermittent chest pain with history of cardiac disease. TECHNIQUE: Two-view chest, 1:57 p.m. CORRELATION STUDY: 02/03/2020. FINDINGS: Heart size is within normal limits. Coronary artery stent at the left heart border. Central pulmonary artery is slightly prominent and may reflect underlying pulmonary arterial hypertension. Lung jj are hyperinflated compatible with COPD. Scarring or atelectasis at both lung bases. No significant infiltrate or effusion. Unchanged small nodule in the right mid lung field, probable small granuloma. Visualized osseous structures are unremarkable. IMPRESSION: 1. Negative for acute abnormality of the chest. Hyperinflated lung jj suggesting COPD with likely underlying pulmonary arterial hypertension. Dictated by: Dictated on workstation # [id number]
[2022-11-12] MEDS ORDERED: KETOROLAC 30 MG/ML VIAL IVP STA (14:41)
[2022-11-12 14:50] VITALS: BP 137/78
== END 2022-11-12 14:50 | disposition home or self-care (01) ==
LOC: EDUNIT# 13:27 → ER 13:29
DX: R07.89 Other chest pain (principal); Z87.891 Personal history of nicotine dependence; Z95.5 Presence of coronary angioplasty implant and graft
CPT/HCPCS: 36415; 71046; 80053; 83735; 84484; 85025; 86141; 93005; 93041

== ENCOUNTER 2022-11-21 15:03 | Emergency (ER) | payer MEDICARE ==
--- NOTE | 2022-11-21 15:22 | ED Upper Extremity ---
General Chief Complaint: Post OP Complications/Pain Stated Complaint: RIGHT ARM TINGLE/NUMB - POST OP CATH 11/19 Nursing Triage Note: PT AMB TO RM 10 PT CO OF SWELLING AND NUMBNESS IN R ARM. STARTED APPROX 30MIN AGO. PT STATES TENDER TO TOUCH 08/06 Source: patient Exam Limitations: no limitations History of Present Illness Date Seen by Provider: Nov 21, 2022 Time Seen by Provider: 15:09 Initial Comments Patient is a very pleasant 62-year-old male who presents to the emergency department with a chief complaint of swelling in his wrist and numbness and tingling in his arm and right hand. Patient states that he noticed this approximately an hour ago. He states it feels "tender". He denies loss of function. He had a heart cath in [place] on Saturday, 2 days ago. He has been elevating the arm and trying to keep the swelling down. Has not taken anything for pain. One of his instructions was for swelling and increased pain to seek care. No other complaints specifically of chest pain or shortness of breath. Onset: this afternoon Severity: mild Pain/Injury Location: right arm, right forearm, right wrist, right hand Method of Injury: other (2 days ago) Modifying Factors: Worse With Jarring, Worse With Movement Allergies and Home Medications Allergies Coded Allergies: erythromycin base (Unverified Allergy, Intermediate, HIVES, 03/19/16) codeine (Unverified Adverse Reaction, Mild, NAUSEA, IRRITABILITY, 1 05/19/15) Patient Home Medication List Home Medication List Reviewed: Yes Albuterol Sulfate (Ventolin Hfa) 1 Puff Puff, 2 PUFF IH QID PRN for SHORTNESS OF BREATH, (Reported) Entered as Reported by: MATTHEW LEACH on 12/31/18 1138 Aspirin (Aspirin EC) 81 Mg Tablet.dr, 81 MG PO DAILY Prescribed by: NATALIE CAREY on 05/22/19 0949 Aspirin/Acetaminophen/Caffeine (Excedrin Migraine Caplet) 1 Each Tablet, 2 TAB PO Q6H PRN for Headache, (Reported) Entered as Reported by: MATTHEW LEACH on 12/31/18 1138 Atorvastatin Calcium (Atorvastatin Calcium) 80 Mg Tablet, 80 MG PO HS Prescribed by: NATALIE CAREY on 05/22/19 0949 Budesonide/Formoterol Fumarate (Symbicort 160-4.5 Mcg Inhaler) 10.2 Gm Hfa.aer.ad, 2 PUFF INH BID, (Reported) Entered as Reported by: MATTHEW LEACH on 05/21/19 1551 Bupropion HCl (Bupropion Xl) 300 Mg Tab.er.24h, 300 MG PO DAILY, (Reported) Entered as Reported by: MATTHEW LEACH on 05/21/19 160 Clopidogrel Bisulfate (Plavix) 75 Mg Tablet, 75 MG PO DAILY Prescribed by: NATALIE CAREY on 05/22/19 0949 Escitalopram Oxalate (Escitalopram Oxalate) 20 Mg Tablet, 20 MG PO DAILY, (Reported) Entered as Reported by: MATTHEW LEACH on 05/21/19 160 Isosorbide Mononitrate (Isosorbide Mononitrate ER) 30 Mg Tab.er.24h, 30 MG PO DAILY, (Reported) Entered as Reported by: MATTHEW LEACH on 05/21/19 160 Lisinopril (Lisinopril) 5 Mg Tablet, 2.5 MG PO DAILY Prescribed by: NATALIE CAREY on 05/22/19 0949 Meloxicam (Meloxicam) 15 Mg Tablet, 15 MG PO DAILY, (Reported) Entered as Reported by: MATTHEW LEACH on 05/21/19 160 Metoprolol Succinate (Metoprolol Succinate) 25 Mg Tab.er.24h, 25 MG PO DAILY Prescribed by: NATALIE CAREY on 05/22/19 0949 Nitroglycerin (Nitroglycerin) 0.4 Mg Tab.subl, 0.4 MG SL UD PRN for CHEST PAIN (ANGINA), (Reported) Entered as Reported by: MATTHEW LEACH on 05/21/19 160 Pantoprazole Sodium (Pantoprazole Sodium) 40 Mg Tablet.dr, 40 MG PO DAILY, (Reported) Entered as Reported by: MATTHEW LEACH on 05/21/19 160 Tiotropium [place] (Spiriva) 1 Inh Aerp, 1 CAP IH DAILY, (Reported) Entered as Reported by: MATTHEW LEACH on 12/31/18 1138 Review of Systems Constitutional: see HPI Respiratory: no symptoms reported Cardiovascular: no symptoms reported Musculoskeletal: joint pain (right wrist) Skin: no symptoms reported All Other Systems Reviewed Negative Unless Noted: Yes Past Astvevv-Gtsgvj-Efoiyk Hx Patient Social History Tobacco Use?: No Substance use?: No Alcohol Use?: No Pt feels they are or have been: No Immunizations Up To Date Tetanus Booster (TDap): Unknown PED Vaccines UTD: No Seasonal Allergies Seasonal Allergies: No Past Medical History Surgery/Hospitalization HX: 7 STENTS, RECENT CARDIAC CATH, COPD Surgeries: Yes Coronary Stent, Nose Respiratory: Yes COPD, Emphysema Currently Using CPAP: No Currently Using BIPAP: No Cardiac: Yes Coronary Artery Disease, Heart Attack, High Cholesterol, Peripheral Vascular Neurological: No Reproductive Disorders: No Genitourinary: No Gastrointestinal: No Musculoskeletal: Yes Arthritis, Fractures Endocrine: No HEENT: No Cancer: No Psychosocial: Yes Depression Integumentary: Yes (psoriasis) Psoriasis Blood Disorders: No Adverse Reaction/Blood Tranf: No Family Medical History Colon cancer 19 MOTHER FH: lung cancer 19 FATHER Thyroid disease 19 MOTHER Heart Disease Physical Exam Vital Signs Vital Signs - First Documented 11/21/22 11/21/22 15:05 15:30 Temp 36.4 Pulse 74 Resp 16 B/P (MAP) 129/85 (100) Pulse Ox 93 O2 Delivery Room Air Capillary Refill : Less Than 3 Seconds Height, Weight, BMI Height: 6'0.00" Weight: 183lbs. 2.0oz. 83.436668em; 25.00 BMI Method:Stated General Appearance: WD/WN, no apparent distress Neck: normal inspection Cardiovascular: regular rate, rhythm Respiratory: lungs clear, normal breath sounds, no respiratory distress, no accessory muscle use Shoulder: normal inspection, normal ROM Elbow/Forearm: normal inspection, normal ROM Wrist: Yes swelling (tenderness over the volar aspect of the right wrist with mild swelling noted and an obvious healing puncture site at the right radial artery. 2+ rad artery pulse. +tinel's; normal cap refill to the fingers of the right hand. Normal ROM) Hand: normal inspection, normal ROM, Right Neurologic/Psychiatric: alert, normal mood/affect, oriented x 3 Skin: normal color, warm/dry Procedures/Interventions Suture Size: 4-0 Progress/Results/Core Measures Results/Orders Vital Signs/I&O Departure Impression Primary Impression: Carpal tunnel syndrome on right Disposition: 01 HOME, SELF-CARE Condition: Stable Departure-Patient Inst. Decision time for Depature: 15:25 Referrals: NO,LOCAL PHYSICIAN (PCP/Family) Primary Care Physician Patient Instructions: Carpal tunnel syndrome Add. Discharge Instructions: Wear the brace on your right wrist as needed for discomfort. You can remove it to apply ice packs for the swelling. Continue to keep the right arm/wrist elevated to decrease swelling. If you have any increased numbness tingling or pain, especially weakness to the right hand please return to the emergency department for reevaluation. Follow-up with your primary care doctor as needed. LEW POPE MD Nov 21, 2022 15:22
[2022-11-21 15:30] VITALS: BP 129/85
== END 2022-11-21 15:31 | disposition home or self-care (01) ==
LOC: EDUNIT# 15:03 → ER 15:04
DX: G56.01 Carpal tunnel syndrome, right upper limb (principal)
CPT/HCPCS: 99283